=== PATIENT | male | born 1935 | race Hispanic/Latino ===

== ENCOUNTER 2018-09-10 10:00 | Observation (INO) | payer MEDICARE ==
[~2018-09-10] VITALS: Ht 154.4 cm; Wt 98.0 kg
[~2018-09-10 10:00] MED LIST: AMLODIPINE-BEN1 EACH PO; ATORVASTATIN CA10 MG PO; AUGMENTIN XR 11 EACH PO; Aspirin PO; CELEBREX100 MG PO; DETROL LA4 MG PO; FLOMAX0.4 MG PO; GLUCOPHAGE500 MG PO; NORCO 7.5-3251 EACH PO; SERTRALINE HCL50 MG PO; ULTRAM50 MG PO; VESICARE10 MG PO
--- OUTSIDE RECORDS SUMMARY | 2018-09-10 10:03 | XMS REPORT | Summary of Care ---
Author Author [facility] Organization [facility] Address Unknown Phone Unavailable Encounter [place] Paz(WALLY) [id number] Date(s): 10/25/17 - 10/25/17 [facility] [address], [place], [place] [address]- [phone] Discharge Diagnosis: Fall Discharge Diagnosis: Laceration of scalp without foreign body Discharge Diagnosis: Head contusion Discharge Disposition: Home or Self Care Attending Physician: Drew Prescott MD Vital Signs 1 2 3 Most recent to oldest [Reference Range]: 175.26 cm (10/25/17 4:14 PM) Height 147/75 mmHg *HI* (10/25/17 8:30 PM) 160/82 mmHg *HI* (10/25/17 6:51 PM) 157/76 mmHg *HI* (10/25/17 4:14 PM) Blood Pressure [90-140/60-90 mmHg] 16 BRMIN (10/25/17 8:30 PM) 16 BRMIN (10/25/17 6:51 PM) 16 BRMIN (10/25/17 4:14 PM) Respiratory Rate [14-20 BRMIN] 68 bpm (10/25/17 8:30 PM) 66 bpm (10/25/17 6:51 PM) 65 bpm (10/25/17 4:14 PM) Peripheral Pulse Rate [60-100 bpm] 88.636 kg (10/25/17 4:14 PM) Weight 28.86 m2 (10/25/17 4:14 PM) Body Mass Index Problem List No data available for this section Allergies, Adverse Reactions, Alerts Substance Reaction Severity Status sulfa drugs Active Medications Keflex 500 mg oral capsule 500 mg=1 cap, PO, TID, X 10 day, # 30 cap, 0 Refill(s) Start Date: 10/25/17 Stop Date: 11/04/17 Status: Ordered lidocaine 2% 1 inj, Route: SUB-Q, Dosing Weight 88.636, kg, ONCE, STAT, Start date: 10/25/17 18:33:00 [employer], Stop date: 10/25/17 18:33:00 [employer] Start Date: 10/25/17 Stop Date: 10/25/17 Status: Completed Results No data available for this section Immunizations No data available for this section Procedures No data available for this section Social History Social History Type Response Smoking Status Never smoker; Ready to change: No; Concerns about tobacco use in household: No; Exposure to Tobacco Smoke None; Cigarette Smoking Last 365 Days No; Reg Smoking Cessation Counseling No Assessment and Plan No data available for this section
--- OUTSIDE RECORDS SUMMARY | 2018-09-10 10:03 | XMS REPORT ---
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 Allergies, Adverse Reactions, Alerts Allergy Name Allergy Type Status Severity Reaction(s) Onset Date Inactive Date Treating Clinician Comments Sulfa (Sulfonamide Antibiotics) DA Active U 2014-11-21 00:00:00 sulfamethoxazole DA Active U 2014-11-21 00:00:00 trimethoprim DA Active U 2014-11-21 00:00:00 Medications This patient has no known medications.
--- OUTSIDE RECORDS SUMMARY | 2018-09-10 10:03 | XMS REPORT | Summary of Care ---
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9 DegF (12/16/17 11:51 AM) 98.7 DegF (12/16/17 7:25 AM) Temperature Oral [96.4-99.1 DegF] 129/63 mmHg (12/16/17 6:00 PM) 115/70 mmHg (12/16/17 11:51 AM) 130/68 mmHg (12/16/17 7:25 AM) Blood Pressure [90-140/60-90 mmHg] 18 BRMIN (12/16/17 6:00 PM) 18 BRMIN (12/16/17 11:51 AM) 17 BRMIN (12/16/17 7:25 AM) Respiratory Rate [14-20 BRMIN] 98 bpm (1/27/18 6:00 PM) 78 bpm (12/16/17 11:51 AM) 74 bpm (12/16/17 7:25 AM) Peripheral Pulse Rate [60-100 bpm] 94.682 kg (12/14/17 2:22 PM) 96.818 kg (12/14/17 7:17 AM) Weight 32.69 m2 (12/14/17 2:22 PM) 33.43 m2 (12/14/17 7:17 AM) Body Mass Index Problem List No data available for this section Allergies, Adverse Reactions, Alerts Substance Reaction Severity Status sulfa drugs Active Medications acetaminophen 650 mg, Route: PO, Drug form: TAB, Q4H, Dosing Weight 94.682, kg, PRN For Temp > 100.4 F, Start date: 12/15/17 8:01:00 DRUM REEL CUTTER, Duration: 30 day, Stop date: 01/14/18 8:00:00 DRUM REEL CUTTER Start Date: 12/15/17 Stop Date: 12/15/17 Status: Deleted acetaminophen 650 mg, 2 tab, Route: PO, Drug form: TAB, Q4H, Dosing Weight 94.682, kg, PRN For Temp > 100.4 F, Start date: 12/14/17 18:04:00 DRUM REEL CUTTER, Duration: 30 day, Stop date: 01/13/18 18:03:00 DRUM REEL CUTTER Notes: Do not exceed 4 gm/day. (Same as: Tylenol) Start Date: 12/14/17 Stop Date: 12/16/17 Status: Discontinued Al hydroxide/Mg hydroxide/simethicone 200 mg-200 mg-20 mg/5 mL oral suspension 30 mL, Route: PO, Drug Form: SUSP, Dosing Weight 94.682, kg, Q4H, PRN Indigestio n, Start date: 12/15/17 8:01:00 DRUM REEL CUTTER, Duration: 30 day, Stop date: 01/14/18 8:00: 00 DRUM REEL CUTTER Start Date: 12/15/17 Stop Date: 12/15/17 Status: Deleted Al hydroxide/Mg hydroxide/simethicone 200 mg-200 mg-20 mg/5 mL oral suspension 30 mL, Route: PO, Drug Form: SUSP, Dosing Weight 94.682, kg, Q4H, PRN Indigestio n, Start date: 12/14/17 18:04:00 DRUM REEL CUTTER, Duration: 30 day, Stop date: 01/13/18 18:0 3:00 DRUM REEL CUTTER Notes: (aluminum hydroxide-magnesium hyd-simethicone [phone]/5ml 30 ml ud S US) Start Date: 12/14/17 Stop Date: 12/16/17 Status: Discontinued amLODIPine 5 mg, 1 tab, Route: PO, Drug form: TAB, Daily, Start date: 12/15/17 9:00:00 DRUM REEL CUTTER, Duration: 30 day, Stop date: 01/13/18 9:00:00 DRUM REEL CUTTER Notes: (Same as: Hai) Start Date: 12/15/17 Stop Date: 12/16/17 Status: Discontinued amLODIPine 5 mg, 1 tab, Route: PO, Drug form: TAB, Daily, Start date: 12/15/17 10:40:00 DRUM REEL CUTTER , Duration: 30 day, Stop date: 01/14/18 9:00:00 DRUM REEL CUTTER Notes: (Same as: Hai) Start Date: 12/15/17 Stop Date: 12/16/17 Status: Discontinued amLODIPine-benazepril 5 mg-20 mg oral capsule 1 cap, Route: PO, Drug Form: CAP, Dosing Weight 94.682, kg, Daily, Start date: 0 12/16/17 9:00:00 DRUM REEL CUTTER, Duration: 30 day, Stop date: 01/14/18 9:00:00 DRUM REEL CUTTER Start Date: 12/16/17 Stop Date: 12/15/17 Status: Deleted amLODIPine-benazepril 5 mg-20 mg oral capsule 1 cap, PO, Daily, 0 Refill(s) Start Date: 12/14/17 Stop Date: 12/15/17 Status: Discontinued amLODIPine-benazepril 5 mg-20 mg oral capsule 1 cap, Route: PO, Drug Form: CAP, Dosing Weight 94.682, kg, Daily, Start date: 0 12/15/17 9:00:00 DRUM REEL CUTTER, Duration: 30 day, Stop date: 01/13/18 9:00:00 DRUM REEL CUTTER Start Date: 12/15/17 Stop Date: 12/14/17 Status: Deleted amLODIPine-benazepril 5 mg-20 mg oral capsule 1 cap, PO, Daily, # 30 cap, 0 Refill(s) Start Date: 12/15/17 Status: Ordered ANES acetaminophen 1,000 mg, 2 tab, Route: PO, Drug form: TAB, ONCE, Dosing Weight 94.682, kg, PRN Pain Score 1-3, Start date: 12/15/17 11:16:00 DRUM REEL CUTTER Notes: Max acetaminophen 4000 mg/day (4 gm/day). (Same as: Tylenol Extra Streng th) Start Date: 12/15/17 Stop Date: 12/16/17 Status: Discontinued ANES albuterol 0.083% inhalation solution 2.49 mg, 3 mL, Route: NEB, Drug form: SOLN, Q20Min, Dosing Weight 94.682, kg, VT N Wheezing, Priority: STAT, Start date: 12/15/17 11:16:00 DRUM REEL CUTTER, Duration: 30 day, Stop date: 01/14/18 11:15:00 DRUM REEL CUTTER Notes: SEE RT DOCUMENTATION (Same as: Proventil) Start Date: 12/15/17 Stop Date: 12/16/17 Status: Discontinued ANES flumazenil 0.2 mg, 2 mL, Route: IVP, Drug form: INJ, PRN, Dosing Weight 94.682, kg, PRN Mik zodiazepine Reversal, Initial dose, Start date: 12/15/17 11:16:00 DRUM REEL CUTTER, Duration: 30 day, Stop date: 01/14/18 11:15:00 DRUM REEL CUTTER Notes: (Same as: Romazicon) Start Date: 12/15/17 Stop Date: 12/16/17 Status: Discontinued ANES hydrALAZINE 10 mg, 0.5 mL, Route: IVP, Drug form: INJ, Q20Min, Dosing Weight 94.682, kg, PRN Elevated BP, Start date: 12/15/17 11:16:00 DRUM REEL CUTTER, Duration: 2 doses or times, Stop date: Limited # of times Notes: (Same as: Apresoline)Push over 5 minutes Start Date: 12/15/17 Stop Date: 12/16/17 Status: Discontinued ANES HYDROmorphone 0.5 mg, 0.5 mL, Route: IVP, Drug form: INJ, Q5Min, Dosing Weight 94.682, kg, PRN Pain Score 7-10, Start date: 12/15/17 11:16:00 DRUM REEL CUTTER, Duration: 4 doses or times, Stop date: Limited # of times Notes: Same as: Dilaudid Start Date: 12/15/17 Stop Date: 12/16/17 Status: Discontinued ANES labetalol 10 mg, 2 mL, Route: IVP, Drug form: INJ, Q5Min, Dosing Weight 94.682, kg, PRN El evated BP, Start date: 12/15/17 11:16:00 DRUM REEL CUTTER, Duration: 5 doses or times, Stop d ate: Limited # of times Notes: (Same as: Normodyne, Trandate)Push over 2 minutes Give bolus over 2-3 mi nutes. Start Date: 12/15/17 Stop Date: 12/16/17 Status: Discontinued ANES meperidine 12.5 mg, 0.5 mL, Route: IVP, Drug form: INJ, Q30Min, Dosing Weight 94.682, kg, P RN Other -See Comment, For shivering, Start date: 12/15/17 11:16:00 DRUM REEL CUTTER, Duratio n: 2 doses or times, Stop date: Limited # of times Notes: (Same as: Demerol) "Use Precaution in Elderly, Seizure disorders, and Re nal impairment" Start Date: 12/15/17 Stop Date: 12/16/17 Status: Discontinued ANES morphine Sulfate 4 mg, 1 mL, Route: IVP, Drug form: SOLN, Q5Min, Dosing Weight 94.682, kg, PRN Pa in Score 7-10, Start date: 12/15/17 11:16:00 DRUM REEL CUTTER, Duration: 3 doses or times, St op date: Limited # of times Notes: (Same as:MORPhine Sulfate) Start Date: 12/15/17 Stop Date: 12/16/17 Status: Discontinued ANES morphine Sulfate 2 mg, 0.5 mL, Route: IVP, Drug form: SOLN, Q5Min, Dosing Weight 94.682, kg, PRN Pain Score 4-6, Start date: 12/15/17 11:16:00 DRUM REEL CUTTER, Duration: 5 doses or times, S top date: Limited # of times Notes: (Same as:MORPhine Sulfate) Start Date: 12/15/17 Stop Date: 12/16/17 Status: Discontinued ANES naloxone 0.4 mg, 1 mL, Route: IVP, Drug form: INJ, Q2MIN, Dosing Weight 94.682, kg, PRN N arcotic Reversal, Start date: 12/15/17 11:16:00 DRUM REEL CUTTER, Duration: 8 doses or times, Stop date: Limited # of times Notes: Same as Narcan Start Date: 12/15/17 Stop Date: 12/16/17 Status: Discontinued ANES ondansetron 4 mg, 2 mL, Route: IVP, Drug form: INJ, ONCE, Dosing Weight 94.682, kg, PRN Naus ea & Vomiting, Start date: 12/15/17 11:16:00 DRUM REEL CUTTER Notes: (Same as: Maite) MEDICATION WASTE Product Size: 4 mgProduct Was ron: ___ mg Start Date: 12/15/17 Stop Date: 12/16/17 Status: Discontinued atorvastatin 10 mg, 1 tab, Route: PO, Drug form: TAB, Bedtime, Dosing Weight 94.682, kg, Star t date: 12/15/17 21:00:00 DRUM REEL CUTTER, Duration: 30 day, Stop date: 01/13/18 21:00:00 CS T Notes: (Same As: Lipitor) Start Date: 12/15/17 Stop Date: 12/16/17 Status: Discontinued atorvastatin 10 mg oral tablet 10 mg=1 tab, PO, Bedtime, # 30 tab, 0 Refill(s) Start Date: 12/15/17 Status: Ordered azithromycin 500 mg, Route: IVPB, ONCE, Dosing Weight 96.818, kg, Priority: STAT, Start date: 12/14/17 12:09:00 DRUM REEL CUTTER, Stop date: 12/14/17 12:09:00 DRUM REEL CUTTER, ABX Indication: Pneumo bonny Start Date: 12/14/17 Stop Date: 12/14/17 Status: Completed bisacodyl 10 mg, Route: VT, Drug form: SUPP, Daily, Dosing Weight 94.682, kg, PRN Constipa tion, Start date: 12/15/17 8:01:00 DRUM REEL CUTTER, Duration: 30 day, Stop date: 01/14/18 8: 00:00 DRUM REEL CUTTER Start Date: 12/15/17 Stop Date: 12/15/17 Status: Deleted bisacodyl 10 mg, 1 supp, Route: VT, Drug form: SUPP, Daily, Dosing Weight 94.682, kg, PRN Constipation, Start date: 12/14/17 18:04:00 DRUM REEL CUTTER, Duration: 30 day, Stop date: 18:03:00 DRUM REEL CUTTER Notes: (Same As: Dulcolax, Bisco-Lax) Start Date: 12/14/17 Stop Date: 12/16/17 Status: Discontinued CeleBREX 200 mg, 2 cap, Route: PO, Drug form: CAP, Daily, Dosing Weight 94.682, kg, Start date: 12/16/17 9:00:00 DRUM REEL CUTTER, Duration: 30 day, Stop date: 01/14/18 9:00:00 DRUM REEL CUTTER Notes: NSAID. Please check indication. Not for seizure. (Same As: CeleBREX) Start Date: 12/16/17 Stop Date: 12/16/17 Status: Discontinued CeleBREX 200 mg oral capsule 200 mg=1 cap, PO, Daily, # 30 cap, 0 Refill(s) Start Date: 12/15/17 Status: Ordered cloNIDine 0.1 mg oral tablet 0.1 mg, 1 tab, Route: PO, Drug form: TAB, TID, Dosing Weight 94.682, kg, PRN Orquidea vated BP, Start date: 12/15/17 8:01:00 DRUM REEL CUTTER, Duration: 30 day, Stop date: 8 8:00:00 DRUM REEL CUTTER Notes: (Same As: Catapres) Start Date: 12/15/17 Stop Date: 12/16/17 Status: Discontinued codeine-guaiFENesin 10 mg-100 mg/5 mL oral syrup 10 mL, Route: PO, Drug Form: LIQ, Dosing Weight 94.682, kg, Q4H, PRN Cough, Star t date: 12/15/17 8:01:00 DRUM REEL CUTTER, Duration: 30 day, Stop date: 01/14/18 8:00:00 DRUM REEL CUTTER Start Date: 12/15/17 Stop Date: 12/15/17 Status: Deleted codeine-guaiFENesin 10 mg-100 mg/5 mL oral syrup 10 mL, Route: PO, Drug Form: LIQ, Dosing Weight 94.682, kg, Q4H, PRN Cough, Star t date: 12/14/17 18:04:00 DRUM REEL CUTTER, Duration: 30 day, Stop date: 01/13/18 18:03:00 CS T Notes: (Same As: Robitussin AC) Start Date: 12/14/17 Stop Date: 12/16/17 Status: Discontinued dextromethorphan-guaiFENesin 10 mg-100 mg/5 mL oral liquid 10 mL, Route: PO, Drug Form: LIQ, Dosing Weight 94.682, kg, Q4H, PRN Cough, Star t date: 12/15/17 8:01:00 DRUM REEL CUTTER, Duration: 30 day, Stop date: 01/14/18 8:00:00 DRUM REEL CUTTER Start Date: 12/15/17 Stop Date: 12/15/17 Status: Deleted dextromethorphan-guaiFENesin 10 mg-100 mg/5 mL oral liquid 10 mL, Route: PO, Drug Form: LIQ, Dosing Weight 94.682, kg, Q4H, PRN Cough, Star t date: 12/14/17 18:04:00 DRUM REEL CUTTER, Duration: 30 day, Stop date: 01/13/18 18:03:00 CS T Notes: (dextromethorphan-guaifenesin 10-100/5 ml LIQ) (Same as: Robitussin-DM) Start Date: 12/14/17 Stop Date: 12/16/17 Status: Discontinued Dextrose 50% Syringe 25 gm, 50 mL, Route: IVP, Drug Form: INJ, Dosing Weight 94.682, kg, PRN, PRN Blo od Glucose Results, Start date: 12/14/17 18:03:00 DRUM REEL CUTTER, Duration: 30 day, Stop da te: 01/13/18 18:02:00 DRUM REEL CUTTER Start Date: 12/14/17 Stop Date: 12/16/17 Status: Discontinued Dextrose 50% Syringe 12.5 gm, 25 mL, Route: IVP, Drug Form: INJ, Dosing Weight 94.682, kg, PRN, PRN B lood Glucose Results, Start date: 12/14/17 18:03:00 DRUM REEL CUTTER, Duration: 30 day, Stop date: 01/13/18 18:02:00 DRUM REEL CUTTER Start Date: 12/14/17 Stop Date: 12/16/17 Status: Discontinued diphenhydrAMINE 25 mg, Route: PO, Drug form: TAB, Q6H, Dosing Weight 94.682, kg, PRN Itching, St art date: 12/15/17 8:01:00 DRUM REEL CUTTER, Duration: 30 day, Stop date: 01/14/18 8:00:00 CS T Start Date: 12/15/17 Stop Date: 12/15/17 Status: Deleted diphenhydrAMINE 25 mg, 1 tab, Route: PO, Drug form: TAB, Q6H, Dosing Weight 94.682, kg, PRN Itch ing, Start date: 12/14/17 18:04:00 DRUM REEL CUTTER, Stop date: 01/13/18 18:03:00 DRUM REEL CUTTER Start Date: 12/14/17 Stop Date: 12/16/17 Status: Discontinued Ditropan 5 mg, 1 tab, Route: PO, Drug form: TAB, BID, Start date: 12/15/17 10:48:00 DRUM REEL CUTTER, Duration: 30 day, Stop date: 01/14/18 9:00:00 DRUM REEL CUTTER Notes: Same as: Ditropan) Start Date: 12/15/17 Stop Date: 12/16/17 Status: Discontinued Dulcolax Laxative 10 mg, 2 tab, Route: PO, Drug form: ECTAB, BID, Dosing Weight 94.682, kg, PRN Co nstipation, Start date: 12/15/17 8:01:00 DRUM REEL CUTTER, Duration: 30 day, Stop date: 01/14 8:00:00 DRUM REEL CUTTER Notes: (Same As: Dulcolax, Correctol) (Do Not Crush) "Do Not Crush" Start Date: 12/15/17 Stop Date: 12/16/17 Status: Discontinued DuoNeb inhalation solution 3 ml, Route: NEB, Drug Form: SOLN, Dosing Weight 94.682, kg, RQ6H, Start date: 0 12/15/17 14:00:00 DRUM REEL CUTTER, Duration: 30 day, Stop date: 01/14/18 8:00:00 DRUM REEL CUTTER Notes: (Same as: Duoneb) Start Date: 12/15/17 Stop Date: 12/16/17 Status: Discontinued ePHEDrine (ANES) Route: IV, Drug form: INJ, ONCE, Stop date: 12/15/17 13:48:00 DRUM REEL CUTTER Start Date: 12/15/17 Stop Date: 12/15/17 Status: Completed fentaNYL (ANES) Route: IV, Drug form: INJ, ONCE, Stop date: 12/15/17 13:53:00 DRUM REEL CUTTER Start Date: 12/15/17 Stop Date: 12/15/17 Status: Completed Flomax 0.4 mg, 1 cap, Route: PO, Drug form: CAP, Daily, Dosing Weight 94.682, kg, Start date: 12/15/17 9:00:00 DRUM REEL CUTTER, Duration: 30 day, Stop date: 01/13/18 9:00:00 DRUM REEL CUTTER Notes: (Same As: Flomax) "Do Not Crush" Start Date: 12/15/17 Stop Date: 12/16/17 Status: Discontinued Flomax 0.4 mg oral capsule 0.4 mg=1 cap, PO, Daily, 0 Refill(s) Start Date: 12/14/17 Status: Ordered glucagon 1 mg, Route: IM, Drug form: PDR/INJ, PRN, Dosing Weight 94.682, kg, PRN Blood Gl ucose Results, Start date: 12/14/17 18:03:00 DRUM REEL CUTTER, Duration: 30 day, Stop date: 0 01/13/18 18:02:00 DRUM REEL CUTTER Start Date: 12/14/17 Stop Date: 12/16/17 Status: Discontinued glycopyrrolate (ANES) Route: IV, Drug form: INJ, ONCE, Stop date: 12/15/17 14:06:00 DRUM REEL CUTTER Start Date: 12/15/17 Stop Date: 12/15/17 Status: Completed hydrALAZINE 10 mg, 0.5 mL, Route: IVP, Drug form: INJ, Q4H, Dosing Weight 94.682, kg, PRN El evated BP, Start date: 12/15/17 8:01:00 DRUM REEL CUTTER, Duration: 30 day, Stop date: 8:00:00 DRUM REEL CUTTER Notes: (Same as: Apresoline)Push over 5 minutes Start Date: 12/15/17 Stop Date: 12/16/17 Status: Discontinued insulin lispro 1 unit, 0.01 mL, Route: SUB-Q, Drug form: SOLN, TID-Before Meals, Dosing Weight 94.682, kg, PRN Blood Glucose Results, Start date: 12/14/17 18:03:00 DRUM REEL CUTTER, Durati on: 30 day, Stop date: 01/13/18 18:02:00 DRUM REEL CUTTER Notes: (Same as: Humalog ) Roll in palms of hands gently; Do not shake `vigorou sly. "Single Patient Use Only " WASTE: F/P - Black; E - [employer] [address] able for 28 days at room temperature.Expires in days from Da te Start Date: 12/14/17 Stop Date: 12/16/17 Status: Discontinued insulin lispro 3 unit, 0.03 mL, Route: SUB-Q, Drug form: SOLN, TID-Before Meals, Dosing Weight 94.682, kg, PRN Blood Glucose Results, Start date: 12/14/17 18:03:00 DRUM REEL CUTTER, Durati on: 30 day, Stop date: 01/13/18 18:02:00 DRUM REEL CUTTER Notes: (Same as: Humalog ) Roll in palms of hands gently; Do not shake `vigorou sly. "Single Patient Use Only " WASTE: F/P - Black; E - [employer] [facility] [address] able for 28 days at room temperature.Expires in days from Da te Start Date: 12/14/17 Stop Date: 12/16/17 Status: Discontinued insulin lispro 2 unit, 0.02 mL, Route: SUB-Q, Drug form: SOLN, TID-Before Meals, Dosing Weight 94.682, kg, PRN Blood Glucose Results, Start date: 12/14/17 18:03:00 DRUM REEL CUTTER, Durati on: 30 day, Stop date: 01/13/18 18:02:00 DRUM REEL CUTTER Notes: (Same as: Humalog ) Roll in palms of hands gently; Do not shake `vigorou sly. "Single Patient Use Only " WASTE: F/P - Black; E - [employer] [address] able for 28 days at room temperature.Expires in days from Da te Start Date: 12/14/17 Stop Date: 12/16/17 Status: Discontinued insulin lispro 5 unit, 0.05 mL, Route: SUB-Q, Drug form: SOLN, TID-Before Meals, Dosing Weight 94.682, kg, PRN Blood Glucose Results, Start date: 12/14/17 18:03:00 DRUM REEL CUTTER, Durati on: 30 day, Stop date: 01/13/18 18:02:00 DRUM REEL CUTTER Notes: (Same as: Humalog ) Roll in palms of hands gently; Do not shake `vigorou sly. "Single Patient Use Only " WASTE: F/P - Black; E - [employer] [facility] [address] able for 28 days at room temperature.Expires in days from Da te Start Date: 12/14/17 Stop Date: 12/16/17 Status: Discontinued insulin lispro 4 unit, 0.04 mL, Route: SUB-Q, Drug form: SOLN, TID-Before Meals, Dosing Weight 94.682, kg, PRN Blood Glucose Results, Start date: 12/14/17 18:03:00 DRUM REEL CUTTER, Durati on: 30 day, Stop date: 01/13/18 18:02:00 DRUM REEL CUTTER Notes: (Same as: Humalog ) Roll in palms of hands gently; Do not shake `vigorou sly. "Single Patient Use Only " WASTE: F/P - Black; E - [employer] [address] able for 28 days at room temperature.Expires in days from Da te Start Date: 12/14/17 Stop Date: 12/16/17 Status: Discontinued Keflex 500 mg oral capsule 500 mg=1 cap, PO, TID, X 10 day, # 30 cap, 0 Refill(s) Start Date: 12/16/17 Stop Date: 12/26/17 Status: Completed Lactated Ringers Injection IV (ANES) 1000 mL Route: IV, Total Volume: 1,000, Start date: 12/15/17 12:42:00 DRUM REEL CUTTER, Stop date: 13:42:00 DRUM REEL CUTTER Start Date: 12/15/17 Stop Date: 12/15/17 Status: Completed Lactated Ringers IV 1,000 mL 1,000 mL, Rate: 40 ml/hr, Infuse over: 25 hr, Route: IV, Dosing Weight 94.682 kg , Total Volume: 1,000, Start date: 12/15/17 11:23:00 DRUM REEL CUTTER, Duration: 30 day, Stop date: 01/14/18 11:22:00 DRUM REEL CUTTER, 2.14, m2 Start Date: 12/15/17 Stop Date: 12/16/17 Status: Discontinued lidocaine (ANES) Route: IV, Drug form: INJ, ONCE, Stop date: 12/15/17 13:53:00 DRUM REEL CUTTER Start Date: 12/15/17 Stop Date: 12/15/17 Status: Completed Lipitor PO, Daily, 0 Refill(s) Start Date: 12/14/17 Stop Date: 12/15/17 Status: Deleted lisinopril 20 mg, 1 tab, Route: PO, Drug form: TAB, Daily, Start date: 12/15/17 10:42:00 CS T, Duration: 30 day, Stop date: 01/14/18 9:00:00 DRUM REEL CUTTER Notes: (Same as: Prinivil, Zestril) Start Date: 12/15/17 Stop Date: 12/16/17 Status: Discontinued lisinopril 20 mg, 1 tab, Route: PO, Drug form: TAB, Daily, Start date: 12/15/17 9:00:00 DRUM REEL CUTTER , Duration: 30 day, Stop date: 01/13/18 9:00:00 DRUM REEL CUTTER Notes: (Same as: Prinivil, Zestril) Start Date: 12/15/17 Stop Date: 12/16/17 Status: Discontinued magnesium citrate 1.745 g/30 mL oral liquid 150 ml, Route: PO, Drug Form: LIQ, Dosing Weight 94.682, kg, ONCE, PRN Constipat ion, Start date: 12/15/17 8:01:00 DRUM REEL CUTTER Notes: (Same as: Citrate of Magnesia)Concentration: 1.745 gm / 30 mL Start Date: 12/15/17 Stop Date: 12/16/17 Status: Discontinued metFORMIN 500 mg, PO, BID, 0 Refill(s) Start Date: 12/14/17 Status: Ordered Milk of Magnesia 30 mL, Route: PO, Drug Form: SUSP, Dosing Weight 94.682, kg, Q3H, PRN Constipati on, Start date: 12/15/17 8:01:00 DRUM REEL CUTTER, Duration: 2 doses or times, Stop date: Fisher opaled # of times Start Date: 12/15/17 Stop Date: 12/15/17 Status: Deleted Milk of Magnesia 30 mL, Route: PO, Drug Form: SUSP, Dosing Weight 94.682, kg, Q3H, PRN Constipati on, Start date: 12/14/17 18:04:00 DRUM REEL CUTTER, Duration: 2 doses or times, Stop date: Janneth dougherty # of times Notes: (Same as: Milk of Magnesia, MOM) Start Date: 12/14/17 Stop Date: 12/16/17 Status: Discontinued morphine Sulfate 4 mg, 1 mL, Route: IVP, Drug form: SOLN, Q4H, Dosing Weight 94.682, kg, PRN Pain Score 7-10, Start date: 12/14/17 16:54:00 DRUM REEL CUTTER, Duration: 30 day, Stop date: 16:53:00 DRUM REEL CUTTER Notes: (Same as:MORPhine Sulfate) Start Date: 12/14/17 Stop Date: 12/16/17 Status: Discontinued morphine Sulfate 4 mg, Route: IVP, Drug form: INJ, ONCE, Dosing Weight 96.818, kg, Priority: STAT , Start date: 12/14/17 10:14:00 DRUM REEL CUTTER, Stop date: 12/14/17 10:14:00 DRUM REEL CUTTER Start Date: 12/14/17 Stop Date: 12/14/17 Status: Completed morphine Sulfate 2 mg, Route: IVP, Drug form: INJ, ONCE, Dosing Weight 96.818, kg, Priority: STAT , Start date: 12/14/17 7:25:00 DRUM REEL CUTTER, Stop date: 12/14/17 7:25:00 DRUM REEL CUTTER Start Date: 12/14/17 Stop Date: 12/14/17 Status: Completed neostigmine (ANES) Route: IV, Drug form: INJ, ONCE, Stop date: 12/15/17 14:06:00 DRUM REEL CUTTER Start Date: 12/15/17 Stop Date: 12/15/17 Status: Completed Alda 5/325 oral tablet 1 tab, Route: PO, Drug Form: TAB, Dosing Weight 94.682, kg, Q4H, PRN Pain Score 4-6, Start date: 12/15/17 8:01:00 DRUM REEL CUTTER, Duration: 30 day, Stop date: 01/14/18 8:0 0:00 DRUM REEL CUTTER Start Date: 12/15/17 Stop Date: 12/15/17 Status: Deleted Alda 5/325 oral tablet 1 tab, Route: PO, Drug Form: TAB, Dosing Weight 94.682, kg, Q4H, PRN Pain Score 1-3, Start date: 12/14/17 16:54:00 DRUM REEL CUTTER, Stop date: 12/16/17 8:59:00 DRUM REEL CUTTER Notes: (Same as: Alda 325/5) Do not exceed 4gm/day of acetaminophen. Start Date: 12/14/17 Stop Date: 12/16/17 Status: Completed normal saline 0.9% IV 1000 mL 1,000 mL, Rate: 100 ml/hr, Infuse over: 10 hr, Route: IV, Dosing Weight 96.818 k g, Total Volume: 1,000, Priority: STAT, Start date: 12/14/17 10:13:00 DRUM REEL CUTTER, Durat ion: 1 doses or times, Stop date: 12/14/17 20:12:00 DRUM REEL CUTTER, 2.16, m2 Start Date: 12/14/17 Stop Date: 12/14/17 Status: Completed NS (Bolus) IV 1,000 mL, 1,000 ml/hr, Infuse Over: 1 hr, Route: IV, ONCE, Priority: STAT, Dosin g Weight 96.818 kg, Start date: 12/14/17 7:25:00 DRUM REEL [employer], Stop date: 12/14/17 7:25:0 0 [employer] Start Date: 12/14/17 Stop Date: 12/14/17 Status: Completed ondansetron 4 mg, Route: IVP, Drug form: INJ, Q8H, Dosing Weight 94.682, kg, PRN Nausea & Vomiting, Start date: 12/15/17 8:01:00 [employer], Duration: 30 day, Stop date: 8:00:00 [employer] Start Date: 12/15/17 Stop Date: 12/15/17 Status: Deleted ondansetron 4 mg, 2 mL, Route: IVP, Drug form: INJ, Q8H, Dosing Weight 94.682, kg, PRN Nause a & Vomiting, Start date: 12/14/17 18:04:00 [employer], Duration: 30 day, Stop date: 01/13/18 18:03:00 [employer] Notes: (Same as: Zofran) MEDICATION WASTE Product Size: 4 mgProduct Was ron: ___ mg Start Date: 12/14/17 Stop Date: 12/16/17 Status: Discontinued ondansetron 4 mg, Route: IVP, Drug form: INJ, ONCE, Dosing Weight 96.818, kg, Priority: STAT , Start date: 12/14/17 7:25:00 [employer], Stop date: 12/14/17 7:25:00 [employer] Start Date: 12/14/17 Stop Date: 12/14/17 Status: Completed ondansetron (ANES) Route: IV, Drug form: INJ, ONCE, Stop date: 12/15/17 14:06:00 [employer] Start Date: 12/15/17 Stop Date: 12/15/17 Status: Completed phenylephrine (ANES) Route: IV, Drug form: INJ, ONCE, Stop date: 12/15/17 13:48:00 [employer] Start Date: 12/15/17 Stop Date: 12/15/17 Status: Completed propofol (ANES) Route: IV, Drug form: INJ, ONCE, Stop date: 12/15/17 13:53:00 [employer] Start Date: 12/15/17 Stop Date: 12/15/17 Status: Completed Rocephin 1 gm, Route: IVPB, Drug form: PDR/INJ, ONCE, Dosing Weight 96.818, kg, Priority: STAT, Start date: 12/14/17 9:40:00 [employer], Stop date: 12/14/17 9:40:00 [employer], ABX In dication: Urinary Tract Infection Start Date: 12/14/17 Stop Date: 12/14/17 Status: Completed Rocephin + sterile water 10 mL 1 gm, Route: IVP, [id number], Dosing Weight 94.682, kg, Start date: 12/14/17 17:00: 00 [employer], Duration: 10 day, Stop date: 12/24/17 10:00:00 [employer], ABX Indication: Kimberley caryn Tract Infection Notes: (Same As: Rocephin).Use with 100 mL NS and infuse over 30 min MEDICA TION WASTE Product Size: 1000 mgProduct Wasted: ___ mg Start Date: 12/14/17 Stop Date: 12/16/17 Status: Discontinued rocuronium (ANES) Route: IV, Drug form: INJ, ONCE, Stop date: 12/15/17 13:53:00 [employer]UM RE[employer] CUTTER Start Date: 12/15/17 Stop Date: 12/15/17 Status: Completed sertraline PO, Daily, 0 Refill(s) Start Date: 12/14/17 Stop Date: 12/15/17 Status: Deleted sertraline 50 mg, 1 tab, Route: PO, Drug form: TAB, Daily, Dosing Weight 94.682, kg, Start date: 12/15/17 10:46:00 DRUM REEL CUTTER, Duration: 30 day, Stop date: 01/14/18 9:00:00 DRUM RE[employer] CUTTER Notes: (Same as: Zoloft) Start Date: 12/15/17 Stop Date: 12/16/17 Status: Discontinued sertraline 50 mg oral tablet 50 mg=1 tab, PO, Daily, # 30 tab, 0 Refill(s) Start Date: 12/15/17 Status: Ordered simethicone 80 mg, Route: PO, Drug form: CHEWTAB, Q6H, Dosing Weight 94.682, kg, PRN Gas, St art date: 12/15/17 8:01:00 DRUM REEL CUTTER, Duration: 2 doses or times, Stop date: Limited # of times Start Date: 12/15/17 Stop Date: 12/15/17 Status: Deleted simethicone 80 mg, 1 tab, Route: PO, Drug form: CHEWTAB, Q6H, Dosing Weight 94.682, kg, PRN Gas, Start date: 12/14/17 18:04:00 DRUM REEL CUTTER, Duration: 2 doses or times, Stop date: L imited # of times Notes: (Same as: Mylicon) Start Date: 12/14/17 Stop Date: 12/16/17 Status: Discontinued succinylcholine (ANES) Route: IV, Drug form: INJ, ONCE, Stop date: 12/15/17 13:53:00 DRUM RE[employer] CUTTER Start Date: 12/15/17 Stop Date: 12/15/17 Status: Completed Tessalon Perles 100 mg, Route: PO, Drug form: CAP, Q8H, Dosing Weight 94.682, kg, PRN Cough, Sta rt date: 12/15/17 8:01:00 DRUM REEL CUTTER, Duration: 30 day, Stop date: 01/14/18 8:00:00 DRUM RE[employer] C[employer]TER Start Date: 12/15/17 Stop Date: 12/15/17 Status: Deleted Tessalon Perles 100 mg, 1 cap, Route: PO, Drug form: CAP, Q8H, Dosing Weight 94.682, kg, PRN Cou gh, Start date: 12/14/17 18:04:00 DRUM REEL CUTTER, Duration: 30 day, Stop date: 01/13/18 18: 03:00 DRUM REEL CUTTER Notes: (Same As: Tessalon Perles)"Do Not Crush" Start Date: 12/14/17 Stop Date: 12/16/17 Status: Discontinued tolterodine 2 mg, Route: PO, Drug form: TAB, BID, Dosing Weight 94.682, kg, Start date: 11/21 05/07 17:00:00 DRUM REEL CUTTER, Duration: 30 day, Stop date: 01/14/18 9:00:00 DRUM REEL C[employer]TER Start Date: 12/15/17 Stop Date: 12/15/17 Status: Deleted tolterodine PO, Daily, 0 Refill(s) Start Date: 12/14/17 Stop Date: 12/15/17 Status: Deleted tolterodine 2 mg oral tablet 2 mg=1 tab, PO, BID, # 180 tab, 0 Refill(s) Start Date: 12/15/17 Status: Ordered tramadol 50 mg oral tablet 50 mg, 1 tab, Route: PO, Drug form: TAB, Q6H, Dosing Weight 94.682, kg, PRN Pain Score 1-3, Start date: 12/16/17 8:39:00 DRUM RE[employer] CUTTER, Duration: 30 day, Stop date: 01/15 8:38:00 DRUM REEL CUTTER Notes: Not to exceed 400mg/day. (Same As: Ultram) Start Date: 12/16/17 Stop Date: 12/16/17 Status: Discontinued tramadol 50 mg oral tablet 50 mg=1 tab, PO, Q4H, PRN Pain, X 10 day, # 24 tab, 0 Refill(s) Start Date: 12/16/17 Stop Date: 12/26/17 Status: Completed VESIcare 10 mg, Route: PO, Drug form: TAB, Daily, Dosing Weight 94.682, kg, Start date: 0 12/15/17 9:00:00 DRUM REEL CUTTER, Duration: 30 day, Stop date: 01/13/18 9:00:00 DRUM REEL CUTTER Start Date: 12/15/17 Stop Date: 12/14/17 Status: Canceled VESIcare 10 mg oral tablet 10 mg=1 tab, PO, Daily, 0 Refill(s) Start Date: 12/14/17 Status: Ordered Results ELECTROLYTES Most recent to 11 21 oldest [Reference Range]: Sodium Lvl [135-145 142 mEq/L 141 mEq/L mEq/L] (12/15/17 3:38 AM) (12/14/17 7:37 AM) Potassium Lvl 3.7 mEq/L 3.6 mEq/L [3.5-5.1 mEq/L] (12/15/17 3:38 AM) (12/14/17 7:37 AM) Chloride Lvl [95-109 106 mEq/L 105 mEq/L mEq/L] (12/15/17 3:38 AM) (12/14/17 7:37 AM) CO2 [24-32 mEq/L] 27 mEq/L 28 mEq/L (12/15/17 3:38 AM) (12/14/17 7:37 AM) AGAP [10.0-20.0 12.7 mEq/L 11.6 mEq/L mEq/L] (12/15/17 3:38 AM) (12/14/17 7:37 AM) CHEM PANEL Most recent to 11 21 oldest [Reference Range]: Creatinine Lvl 0.79 mg/dL 0.86 mg/dL [0.50-1.40 mg/dL] (12/15/17 3:38 AM) (12/14/17 7:37 AM) eGFR 84 mL/min/1.73m2 1 81 mL/min/1.73m2 2 *NA* *NA* (12/15/17 3:38 AM) (12/14/17 7:37 AM) BUN [7-22 mg/dL] 12 mg/dL 18 mg/dL (12/15/17 3:38 AM) (12/14/17 7:37 AM) B/C Ratio [6-25] 21 (12/14/17 7:37 AM) Glucose Lvl [70-99 111 mg/dL 132 mg/dL mg/dL] *HI* *HI* (12/15/17 3:38 AM) (12/14/17 7:37 AM) Total Protein 8.1 g/dL [6.4-8.4 g/dL] (12/14/17 7:37 AM) Albumin Lvl [3.5-5.0 3.6 g/dL g/dL] (12/14/17 7:37 AM) Globulin [2.7-4.2 4.5 g/dL g/dL] *HI* (12/14/17 7:37 AM) A/G Ratio [0.7-1.6] 0.8 (12/14/17 7:37 AM) Calcium Lvl 8.9 mg/dL 8.9 mg/dL [8.5-10.5 mg/dL] (12/15/17 3:38 AM) (12/14/17 7:37 AM) ALT [0-65 unit/L] 19 unit/L (12/14/17 7:37 AM) AST [0-37 unit/L] 18 unit/L (12/14/17 7:37 AM) Alk Phos [39-136 109 unit/L unit/L] (12/14/17 7:37 AM) Bili Total [0.2-1.3 0.8 mg/dL mg/dL] (12/14/17 7:37 AM) Lipase Lvl [73-393 61 unit/L unit/L] *LOW* (12/14/17 7:37 AM) Lactic Acid Lvl 1.0 mMol/L [0.5-2.2 mMol/L] (12/14/17 7:37 AM) 1Result Comment: The eGFR is calculated using the CKD-EPI formula. In most young, healthy individuals the eGFR will be >90 mL/min/1.73m2. The eGFR declines with age. An eGFR of 60-89 may be normal in some populations, particularly the elderly, for whom the CKD-EPI formula has not been extensively validated. Use of the eGFR is not recommended in the following populations: Individuals with unstable creatinine concentrations, including patients and those with serious co-morbid conditions. Patients with extremes in muscle mass or diet. The data above are obtained from the National Kidney Disease Education Program ( NKDEP) which additionally recommends that when the eGFR is used in patients with extremes of body mass index for purposes of drug dosing, the eGFR should be mul tiplied by the estimated BMI. 2Result Comment: The eGFR is calculated using the CKD-EPI formula. In most young, healthy individuals the eGFR will be >90 mL/min/1.73m2. The eGFR declines with age. An eGFR of 60-89 may be normal in some populations, particularly the elderly, for whom the CKD-EPI formula has not been extensively validated. Use of the eGFR is not recommended in the following populations: Individuals with unstable creatinine concentrations, including patients and those with serious co-morbid conditions. Patients with extremes in muscle mass or diet. The data above are obtained from the National Kidney Disease Education Program ( NKDEP) which additionally recommends that when the eGFR is used in patients with extremes of body mass index for purposes of drug dosing, the eGFR should be mul tiplied by the estimated BMI. URINE AND STOOL Most recent to 1 2 oldest [Reference Range]: UA Turbidity [Clear] Cloudy Cloudy *ABN* *ABN* (12/14/17 1:50 PM) (12/14/17 7:37 AM) UA Color [Yellow] Red Yellow *ABN* *NA* (12/14/17 1:50 PM) (12/14/17 7:37 AM) UA pH [5.0-8.0] 6.5 7.5 (12/14/17 1:50 PM) (12/14/17 7:37 AM) UA Spec Grav 1.010 1.015 [<=1.030] (12/14/17 1:50 PM) (12/14/17 7:37 AM) UA Glucose Negative Negative [Negative] (12/14/17 1:50 PM) (12/14/17 7:37 AM) UA Blood [Negative] Large Small *ABN* *ABN* (12/14/17 1:50 PM) (12/14/17 7:37 AM) UA Ketones Negative Negative [Negative] *NA* *NA* (12/14/17 1:50 PM) (12/14/17 7:37 AM) UA Protein [Negative 100 mg/dL mg/dL] *ABN* (12/14/17 1:50 PM) UA Protein Negative [Negative] (12/14/17 7:37 AM) UA Urobilinogen 0.2 EU/dL 0.2 EU/dL [0.1-1.0 EU/dL] (12/14/17 1:50 PM) (12/14/17 7:37 AM) UA Bili [Negative] Negative Negative *NA* *NA* (12/14/17 1:50 PM) (12/14/17 7:37 AM) UA Leuk Est Moderate Large [Negative] *ABN* *ABN* (12/14/17 1:50 PM) (12/14/17 7:37 AM) UA Nitrite Negative Negative [Negative] (12/14/17 1:50 PM) (12/14/17 7:37 AM) UA WBC [0-5 /HPF] >100 /HPF *ABN* (12/14/17 1:50 PM) UA WBC [None Seen] Packed *ABN* (12/14/17 7:37 AM) UA RBC [0-2 /HPF] >100 /HPF 0-2 /HPF *ABN* (12/14/17 7:37 AM) (12/14/17 1:50 PM) UA Bacteria [None Few /HPF Few /HPF Seen /HPF] (12/14/17 1:50 PM) (12/14/17 7:37 AM) UA Sq Epi [Few /LPF] Occasional /LPF Rare /LPF (12/14/17 1:50 PM) (12/14/17 7:37 AM) UA Mucus [None Seen Few /LPF /LPF] (12/14/17 1:50 PM) Micro? Performed Performed (12/14/17 1:50 PM) (12/14/17 7:37 AM) HEMATOLOGY Most recent to 1 2 oldest [Reference Range]: WBC [3.7-10.4 K/CMM] 8.8 K/CMM 9.6 K/CMM (12/15/17 3:38 AM) (12/14/17 7:37 AM) RBC [4.70-6.10 4.01 M/CMM 3.87 M/CMM M/CMM] *LOW* *LOW* (12/15/17 3:38 AM) (12/14/17 7:37 AM) Hgb [14.0-18.0 g/dL] 12.8 g/dL 12.4 g/dL *LOW* *LOW* (12/15/17 3:38 AM) (12/14/17 7:37 AM) Hct [42.0-54.0 %] 38.8 % 37.0 % *LOW* *LOW* (12/15/17 3:38 AM) (12/14/17 7:37 AM) MCV [80.0-94.0 fL] 96.7 fL 95.4 fL *HI* *HI* (12/15/17 3:38 AM) (12/14/17 7:37 AM) MCH [27.0-31.0 pg] 32.0 pg 32.2 pg *HI* *HI* (12/15/17 3:38 AM) (12/14/17 7:37 AM) MCHC [32.0-36.0 33.1 g/dL 33.7 g/dL g/dL] (12/15/17 3:38 AM) (12/14/17 7:37 AM) RDW [11.5-14.5 %] 14.5 % 14.1 % (12/15/17 3:38 AM) (12/14/17 7:37 AM) MPV [7.4-10.4 fL] 7.8 fL 8.1 fL (12/15/17 3:38 AM) (12/14/17 7:37 AM) Platelet [133-450 175 K/CMM 173 K/CMM K/CMM] (12/15/17 3:38 AM) (12/14/17 7:37 AM) Segs [45.0-75.0 %] 75.1 % 81.7 % *HI* *HI* (12/15/17 3:38 AM) (12/14/17 7:37 AM) Lymphocytes 17.0 % 14.4 % [20.0-40.0 %] *LOW* *LOW* (12/15/17 3:38 AM) (12/14/17 7:37 AM) Monocytes [2.0-12.0 7.4 % 3.2 % %] (12/15/17 3:38 AM) (12/14/17 7:37 AM) Eosinophils [0.0-4.0 0.4 % 0.5 % %] (12/15/17 3:38 AM) (12/14/17 7:37 AM) Basophils [0.0-1.0 0.1 % 0.2 % %] (12/15/17 3:38 AM) (12/14/17 7:37 AM) Segs-Bands # 6.6 K/CMM 7.9 K/CMM [1.5-8.1 K/CMM] (12/15/17 3:38 AM) (12/14/17 7:37 AM) Lymphocytes # 1.5 K/CMM 1.4 K/CMM [1.0-5.5 K/CMM] (12/15/17 3:38 AM) (12/14/17 7:37 AM) Monocytes # [0.0-0.8 0.7 K/CMM 0.3 K/CMM K/CMM] (12/15/17 3:38 AM) (12/14/17 7:37 AM) Immunizations No data available for this section Procedures Procedure Date Related Diagnosis Body Site Status Cholecystectomy Completed Knee replacement Completed Laparoscopic repair of hernia Completed Social History Social History Type Response Smoking Status Never smoker; Ready to change: No; Concerns about tobacco use in household: No; Exposure to Tobacco Smoke None; Cigarette Smoking Last 365 Days No; Reg Smoking Cessation Counseling No entered on: 12/14/17 Assessment and Plan Extracted from: Title: Discharge Summary * Author: Radha Hernandez MD Date: 12/16/17 Discharge Information keflex 500 mg po TID x 10 days and tramadol 50 mg q6 prn for pain per urology recs pt to follow up with urology and pcp within one week of discharge patient needs follow up on treatment and stent removal , pt verbalized understanding Discharge Plan Discharge Summary Plan Discharge Status: improved. Discharge instructions given: to patient. Discharge disposition: discharge to home. Prescriptions: continue same medications. Diagnosis Ureterolithiasis (ESU89-AF N20.1, Working, Medical). UTI (urinary tract infection) (QSX66-NM N39.0, Working, Medical). Extracted from: Title: Clinical Document Author: Jeannine Reza MD Date: 12/16/17 Progress Daily [facility] Completed: Nov, 08:31 by Jeannine Reza MD RM: [id number] - 1, [place] [id number] (: 1935) M Attending: Radha Hernandez MDPhone: Service: Pulmonology/Respiratory Therapy Reason for Admission: ABDOMINAL PAIN Working DRG: None Documented Code status: None Specified=FULL CODECurrent diet: Isolation: None Documented Allergies: sulfa drugs SUBJECTIVE Pt reports that his pains have resolved and he is anxious for d/c home. 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 Will give Tramadolo prn. Pt will f/u with me in 1-2 weeks for stent removal. Rx on chart Ready for Discharge (Yes/No)? Hua still necessary (Yes/No): Line still necessary (Yes/No): 24hr Labs 12/16 0651 POC Performing LocatioSee Note Glucose DHV502 H 12/15 2150 POC Performing LocatioSee Note Glucose VZW819 H 12/15 1602 POC Performing LocatioSee Note Glucose NDJ090 H 12/15 1459 POC Performing LocatioSee Note Glucose WOW117 H VitalsTmp(F)[id number] 12/16 07:2598.499823/595221--- 12/16 07:01 2092 21% 12/15 20:43 1696 2.0L/m 12/15 20:545339425/095832--- 12/15 18:627079038/900246--- 24 Hr Tmax: 99.1F (37.28c) at 12/15 11:17Vital Signs are the last 5 in the past 48 hours. DateWt(kg)Wt(lb)Ht(cm)Ht(in)Method 12/14 (initial) 96.82 213.00Measured . 67.00Stated I&ORecordInOutBal 11/2623hr Tot 1598 1500 98 11/2523hr Tot 1002 3729-1931 Medications (54) Active Scheduled Meds (11): 12/15/17 albuterol-ipratropium (DuoNeb inhalation solution) 3 ml NEB RQ6H 12/15/17 amLODIPine 5 mg PO Daily 12/15/17 amLODIPine 5 mg PO Daily 12/15/17 atorvastatin 10 mg PO Bedtime 12/14/17 cefTRIAXone + sterile water 10 mL (Rocephin + sterile water 10 mL) 1 gm IVP VONS80L 120 ml/hr 12/16/17 celecoxib (CeleBREX) 200 mg PO Daily 12/15/17 lisinopril 20 mg PO Daily 12/15/17 lisinopril 20 mg PO Daily 12/15/17 oxybutynin (Ditropan) 5 mg PO BID 12/15/17 sertraline 50 mg PO Daily 12/15/17 tamsulosin (Flomax) 0.4 mg PO Daily Unscheduled Meds: None PRN Meds (32): 12/14/17 Al hydroxide/Mg hydroxide/simethicone (Al hydroxide/Mg hydroxide/simethicone 200 mg-200 mg-20 mg/5 mL oral suspension) 30 mL PO Q4H 12/14/17 Dextrose 50% in Water IV (Dextrose 50% Syringe) 12.5 gm IVP PRN 12/14/17 Dextrose 50% in Water IV (Dextrose 50% Syringe) 25 gm IVP PRN 12/14/17 acetaminophen-hydrocodone (Alda 5/325 oral tablet) 1 tab PO Q4H 12/14/17 acetaminophen 650 mg PO Q4H 12/15/17 albuterol (ANES albuterol 0.083% inhalation solution) 2.49 mg NEB Q20Min 12/14/17 benzonatate (Tessalon Perles) 100 mg PO Q8H 12/14/17 bisacodyl 10 mg VT Daily 12/15/17 bisacodyl (Dulcolax Laxative) 10 mg PO BID 12/15/17 cloNIDine (cloNIDine 0.1 mg oral tablet) 0.1 mg PO TID 12/14/17 codeine-guaiFENesin (codeine-guaiFENesin 10 mg-100 mg/5 mL oral syrup) 10 mL PO Q4H 12/14/17 dextromethorphan-guaiFENesin (dextromethorphan-guaiFENesin 10 mg-100 mg/5 mL oral liquid) 10 mL PO Q4H 12/14/17 diphenhydrAMINE 25 mg PO Q6H 12/15/17 flumazenil (ANES flumazenil) 0.2 mg IVP PRN 12/14/17 glucagon 1 mg IM PRN 12/15/17 hydrALAZINE 10 mg IVP Q4H 12/15/17 hydrALAZINE (ANES hydrALAZINE) 10 mg IVP Q20Min 12/15/17 hydromorphone (ANES HYDROmorphone) 0.5 mg IVP Q5Min 12/14/17 insulin lispro 1 unit SUB-Q TID-Before Meals 12/14/17 insulin lispro 2 unit SUB-Q TID-Before Meals 12/14/17 insulin lispro 3 unit SUB-Q TID-Before Meals 12/14/17 insulin lispro 4 unit SUB-Q TID-Before Meals 12/14/17 insulin lispro 5 unit SUB-Q TID-Before Meals 12/15/17 labetalol (ANES labetalol) 10 mg IVP Q5Min 12/14/17 magnesium hydroxide (Milk of Magnesia) 30 mL PO Q3H 12/15/17 meperidine (ANES meperidine) 12.5 mg IVP Q30Min 12/14/17 morphine Sulfate 4 mg IVP Q4H 12/15/17 morphine Sulfate (ANES morphine Sulfate) 2 mg IVP Q5Min 12/15/17 morphine Sulfate (ANES morphine Sulfate) 4 mg IVP Q5Min 12/15/17 naloxone (ANES naloxone) 0.4 mg IVP Q2MIN 12/14/17 ondansetron 4 mg IVP Q8H 12/14/17 simethicone 80 mg PO Q6H One Time Meds (10): (Completed) ePHEDrine (ePHEDrine (ANES)) IV ONCE (Completed) fentaNYL (fentaNYL (ANES)) IV ONCE (Completed) glycopyrrolate (glycopyrrolate (ANES)) IV ONCE (Completed) lidocaine (lidocaine (ANES)) IV ONCE (Completed) neostigmine (neostigmine (ANES)) IV ONCE (Completed) ondansetron (ondansetron (ANES)) IV ONCE (Completed) phenylephrine (phenylephrine (ANES)) IV ONCE (Completed) propofol (propofol (ANES)) IV ONCE (Completed) rocuronium (rocuronium (ANES)) IV ONCE (Completed) succinylcholine (succinylcholine (ANES)) IV ONCE Continuous Infusions (1): 12/15/17 Lactated Ringers Injection IV 1,000 mL (Lactated Ringers IV 1,000 mL) 1,000 mL 40 ml/hr
--- OUTSIDE RECORDS SUMMARY | 2018-09-10 10:03 | XMS REPORT | Summary of Care ---
Author Author [facility] [place] Organization [facility] [place] Address Unknown Phone Unavailable Encounter HQ Encntr_alias(FIN) [id number] Date(s): 05/15/18 - 05/15/18 [facility] [id number] [place], [place] [address] [id number] Discharge Disposition: Home or Self Care Attending Physician: Jeannine Reza MD Vital Signs No data available for this section Problem List No data available for this section Allergies, Adverse Reactions, Alerts Substance Reaction Severity Status sulfa drugs Active Medications No data available for this section Results No data available for this section [...] No entered on: 12/14/17 Assessment and Plan No data available for this section
--- OUTSIDE RECORDS SUMMARY | 2018-09-10 10:03 | XMS REPORT | Continuity of Care Document ---
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 12/22/2017 03/24/2018 [facility] ABDOMINAL PAIN Active 12/14/2017 [facility] FALL, HEAD INJURY Active 10/25/2017 [facility] Discharge Diagnosis: Fall 10/25/2017 10/28/2017 [facility] Discharge Diagnosis: Laceration of scalp without foreign body 10/25/2017 10/28/2017 [facility] Discharge Diagnosis: Head contusion 10/25/2017 10/28/2017 [facility] Calculus of ureter 03/24/2018 [facility] Type 2 diabetes mellitus without complications 03/24/2018 [facility] Urinary tract infection, site not specified 03/24/2018 [facility] Other obstructive and reflux uropathy 03/24/2018 [facility] Benign prostatic hyperplasia with lower urinary tract symptoms 03/24/2018 [facility] Essential hypertension 03/24/2018 [facility] Urge incontinence 03/24/2018 [facility] CALCULUS OF URETER Active [facility] Medications Medication Details Route Status Patient Instructions Ordering Provider Order Date Source Amlodipine 5 MG / Benazepril hydrochloride 20 MG Oral Capsule 1 cap, Route: PO, Drug Form: CAP, Dosing Weight 94.682, kg, Daily, Start date: 12/16/17 9:00:00 [employer], Duration: 30 day, Stop date: 01/14/18 9:00:00 [employer] No Longer Active 12/16/2017 [facility] Celebrex 200 mg, 2 cap, Route: PO, Drug form: CAP, Daily, Dosing Weight 94.682, kg, Start date: 12/16/17 9:00:00 [employer], Duration: 30 day, Stop date: 01/14/18 9:00:00 CSTNotes: NSAID. Please check indication. Not for seizure. (Same As: CeleBREX ) Inactive 12/16/2017 [facility] tramadol hydrochloride 50 MG Oral Tablet 50 mg, 1 tab, Route: PO, Drug form: TAB, Q6H, Dosing Weight 94.682, kg, PRN Pain Score 1-3, Start date: 12/16/17 8:39:00 [employer], Duration: 30 day, Stop date: 01/15/18 8:38:00 CSTNotes: Not to exceed 400mg/day. (Same As: Ultram) Inactive 12/16/2017 [facility] tramadol hydrochloride 50 MG Oral Tablet 50 mg=1 tab, PO, Q4H, PRN Pain, X 10 day, # 24 tab, 0 Refill(s) No Longer Active 12/16/2017 [facility] Cephalexin 500 MG Oral Capsule [Keflex] 500 mg=1 cap, PO, TID, X 10 day, # 30 cap, 0 Refill(s) No Longer Active 12/16/2017 [facility] atorvastatin 10 mg, 1 tab, Route: PO, Drug form: TAB, Bedtime, Dosing Weight 94.682, kg, Start date: 12/15/17 21:00:00 [employer], Duration: 30 day, Stop date: 01/13/18 21:00:00 CSTNotes: (Same As: Lipitor) No Longer Active 12/16/2017 [facility] tolterodine 2 mg, Route: PO, Drug form: TAB, BID, Dosing Weight 94.682, kg, Start date: 12/15/17 17:00:00 [employer], Duration: 30 day, Stop date: 01/14/18 9:00:00 [employer] Inactive 12/15/2017 [facility] neostigmine (ANES) Route: IV, Drug form: INJ, ONCE, Stop date: 12/15/17 14:06:00 [employer] Inactive 12/15/2017 [facility] glycopyrrolate (ANES) Route: IV, Drug form: INJ, ONCE, Stop date: 12/15/17 14:06:00 [employer] Inactive 12/15/2017 [facility] ondansetron (ANES) Route: IV, Drug form: INJ, ONCE, Stop date: 12/15/17 14:06:00 [employer] Inactive 12/15/2017 [facility] Albuterol 0.833 MG/ML / Ipratropium [place] 0.167 MG/ML Inhalant Solution [DuoNeb] 3 ml, Route: NEB, Drug Form: SOLN, Dosing Weight 94.682, kg, RQ6H, Start date: 12/15/17 14:00:00 [employer], Duration: 30 day, Stop date: 01/14/18 8:00:00 CSTNotes: (Same as: Duoneb) No Longer Active 12/15/2017 [facility] lidocaine (ANES) Route: IV, Drug form: INJ, ONCE, Stop date: 12/15/17 13:53:00 [employer] Inactive 12/15/2017 [facility] propofol (ANES) Route: IV, Drug form: INJ, ONCE, Stop date: 12/15/17 13:53:00 [employer] Inactive 12/15/2017 [facility] rocuronium (ANES) Route: IV, Drug form: INJ, ONCE, Stop date: 12/15/17 13:53:00 [employer] Inactive 12/15/2017 [facility] succinylcholine (ANES) Route: IV, Drug form: INJ, ONCE, Stop date: 12/15/17 13:53:00 [employer] Inactive 12/15/2017 [facility] fentaNYL (ANES) Route: IV, Drug form: INJ, ONCE, Stop date: 12/15/17 13:53:00 [employer] Inactive 12/15/2017 [facility] ePHEDrine (ANES) Route: IV, Drug form: INJ, ONCE, Stop date: 12/15/17 13:48:00 [employer] Inactive 12/15/2017 [facility] phenylephrine (ANES) Route: IV, Drug form: INJ, ONCE, Stop date: 12/15/17 13:48:00 [employer] Inactive 12/15/2017 [facility] Lactated Ringers Injection IV (ANES) 1000 mL Route: IV, Total Volume: 1,000, Start date: 12/15/17 12:42:00 [employer], Stop date: 12/15/17 13:42:00 [employer] Inactive 12/15/2017 [facility] Lactated Ringers IV 1,000 mL 1,000 mL, Rate: 40 ml/hr, Infuse over: 25 hr, Route: IV, Dosing Weight 94.682 kg, Total Volume: 1,000, Start date: 12/15/17 11:23:00 [employer], Duration: 30 day, Stop date: 01/14/18 11:22:00 [employer], 2.14, m2 No Longer Active 12/15/2017 [facility] Flumazenil 0.2 mg, 2 mL, Route: IVP, Drug form: INJ, PRN, Dosing Weight 94.682, kg, PRN Benzodiazepine Reversal, Initial dose, Start date: 12/15/17 11:16:00 [employer], Duration: 30 day, Stop date: 01/14/18 11:15:00 C STNotes: (Same as: Romazicon) No Longer Active 12/15/2017 [facility] Naloxone 0.4 mg, 1 mL, Route: IVP, Drug form: INJ, Q2MIN, Dosing Weight 94.682, kg, PRN Narcotic Reversal, Start date: 12/15/17 11:16:00 [employer], Duration: 8 doses or times, Stop date: Limited # of timesNotes: Same as Narcan No Longer Active 12/15/2017 [facility] Morphine 4 mg, 1 mL, Route: IVP, Drug form: SOLN, Q5Min, Dosing Weight 94.682, kg, PRN Pain Score 7-10, Start date: 12/15/17 11:16:00 [employer], Duration: 3 doses or times, Stop date: Limited # of timesNotes: (Same as:MORPhine Sulfate) No Longer Active 12/15/2017 [facility] Hydromorphone 0.5 mg, 0.5 mL, Route: IVP, Drug form: INJ, Q5Min, Dosing Weight 94.682, kg, PRN Pain Score 7-10, Start date: 12/15/17 11:16:00 [employer], Duration: 4 doses or times, Stop date: Limited # of timesNotes: Sa me as: Dilaudid No Longer Active 12/15/2017 [facility] Albuterol 0.83 MG/ML Inhalant Solution 2.49 mg, 3 mL, Route: NEB, Drug form: SOLN, Q20Min, Dosing Weight 94.682, kg, PRN Wheezing, Priority: STAT, Start date: 12/15/17 11:16:00 [employer], Duration: 30 day, Stop date: 01/14/18 11:15:00 CSTNotes: SEE RT DOCUMENTATION (Same as: Proventil) No Longer Active 12/15/2017 [facility] Hydralazine 10 mg, 0.5 mL, Route: IVP, Drug form: INJ, Q20Min, Dosing Weight 94.682, kg, PRN Elevated BP, Start date: 12/15/17 11:16:00 [employer], Duration: 2 doses or times, Stop date: Limited # of timesNotes: (Same as: Apresoline) Push over 5 minutes No Longer Active 12/15/2017 [facility] Labetalol 10 mg, 2 mL, Route: IVP, Drug form: INJ, Q5Min, Dosing Weight 94.682, kg, PRN Elevated BP, Start date: 12/15/17 11:16:00 [employer], Duration: 5 doses or times, Stop date: Limited # of timesNotes: (Same as: No rmodyne, Trandate) Push over 2 minutes Give bolus over 2-3 minutes. No Longer Active 12/15/2017 [facility] Acetaminophen 1,000 mg, 2 tab, Route: PO, Drug form: TAB, ONCE, Dosing Weight 94.682, kg, PRN Pain Score 1-3, Start date: 12/15/17 11:16:00 CSTNotes: Max acetaminophen 4000 mg/day (4 gm/day). (Same as: Tylenol Extra Strength) No Longer Active 12/15/2017 [facility] Meperidine 12.5 mg, 0.5 mL, Route: IVP, Drug form: INJ, Q30Min, Dosing Weight 94.682, kg, PRN Other -See Comment, For shivering, Start date: 12/15/17 11:16:00 [employer], Duration: 2 doses or times, Stop date: Limited # of timesNotes: (Same as: Demerol) "Use Precaution in Elderly, Seizure disorders, and Renal impairment" No Longer Active 12/15/2017 [facility] Ondansetron 4 mg, 2 mL, Route: IVP, Drug form: INJ, ONCE, Dosing Weight 94.682, kg, PRN Nausea & Vomiting, Start date: 12/15/17 11:16:00 CSTNotes: (Same as: Zofran) MEDICATION WASTE Product Size: 4 mg Product Wasted: ___ mg No Longer Active 12/15/2017 [facility] Ditropan 5 mg, 1 tab, Route: PO, Drug form: TAB, BID, Start date: 12/15/17 10:48:00 [employer], Duration: 30 day, Stop date: 01/14/18 9:00:00 CSTNotes: Same as: Ditropan) No Longer Active 12/15/2017 [facility] Sertraline 50 mg, 1 tab, Route: PO, Drug form: TAB, Daily, Dosing Weight 94.682, kg, Start date: 12/15/17 10:46:00 [employer], Duration: 30 day, Stop date: 01/14/18 9:00:00 CSTNotes: (Same as: Zoloft) No Longer Active 12/15/2017 [facility] lisinopril 20 mg, 1 tab, Route: PO, Drug form: TAB, Daily, Start date: 12/15/17 10:42:00 [employer], Duration: 30 day, Stop date: 01/14/18 9:00:00 CSTNotes: (Same as: Prinivil, Zestril) No Longer Active 12/15/2017 [facility] amLODIPine 5 mg, 1 tab, Route: PO, Drug form: TAB, Daily, Start date: 12/15/17 10:40:00 [employer], Duration: 30 day, Stop date: 01/14/18 9:00:00 CSTNotes: (Same as: Norvasc) No Longer Active 12/15/2017 [facility] sertraline 50 mg oral tablet 50 mg=1 tab, PO, Daily, # 30 tab, 0 Refill(s) Active 12/15/2017 [facility] tolterodine 2 mg oral tablet 2 mg=1 tab, PO, BID, # 180 tab, 0 Refill(s) Active 12/15/2017 [facility] celecoxib 200 MG Oral Capsule [Celebrex] 200 mg=1 cap, PO, Daily, # 30 cap, 0 Refill(s) Active 12/15/2017 [facility] Amlodipine 5 MG / Benazepril hydrochloride 20 MG Oral Capsule 1 cap, PO, Daily, # 30 cap, 0 Refill(s) Active 12/15/2017 [facility] atorvastatin 10 mg oral tablet 10 mg=1 tab, PO, Bedtime, # 30 tab, 0 Refill(s) Active 12/15/2017 [facility] amLODIPine 5 mg, 1 tab, Route: PO, Drug form: TAB, Daily, Start date: 12/15/17 9:00:00 [employer], Duration: 30 day, Stop date: 01/13/18 9:00:00 CSTNotes: (Same as: Norvasc) No Longer Active 12/15/2017 [facility] Flomax 0.4 mg, 1 cap, Route: PO, Drug form: CAP, Daily, Dosing Weight 94.682, kg, Start date: 12/15/17 9:00:00 [employer], Duration: 30 day, Stop date: 01/13/18 9:00:00 CSTNotes: (Same As: Flomax) "Do Not Crush" No Longer Active 12/15/2017 [facility] VESICARE 10 mg, Route: PO, Drug form: TAB, Daily, Dosing Weight 94.682, kg, Start date: 12/15/17 9:00:00 [employer], Duration: 30 day, Stop date: 01/13/18 9:00:00 [employer] No Longer Active 12/15/2017 [facility] Amlodipine 5 MG / Benazepril hydrochloride 20 MG Oral Capsule 1 cap, Route: PO, Drug Form: CAP, Dosing Weight 94.682, kg, Daily, Start date: 12/15/17 9:00:00 [employer], Duration: 30 day, Stop date: 01/13/18 9:00:00 [employer] No Longer Active 12/15/2017 [facility] lisinopril 20 mg, 1 tab, Route: PO, Drug form: TAB, Daily, Start date: 12/15/17 9:00:00 [employer], Duration: 30 day, Stop date: 01/13/18 9:00:00 CSTNotes: (Same as: Prinivil, Zestril) No Longer Active 12/15/2017 [facility] Simethicone 80 mg, Route: PO, Drug form: CHEWTAB, Q6H, Dosing Weight 94.682, kg, PRN Gas, Start date: 12/15/17 8:01:00 [employer], Duration: 2 doses or times, Stop date: Limited # of times Inactive 12/15/2017 [facility] Hydralazine 10 mg, 0.5 mL, Route: IVP, Drug form: INJ, Q4H, Dosing Weight 94.682, kg, PRN Elevated BP, Start date: 12/15/17 8:01:00 [employer], Duration: 30 day, Stop date: 01/14/18 8:00:00 CSTNotes: (Same as: Dolly lee) Push over 5 minutes No Longer Active 12/15/2017 [facility] Clonidine Hydrochloride 0.1 MG Oral Tablet 0.1 mg, 1 tab, Route: PO, Drug form: TAB, TID, Dosing Weight 94.682, kg, PRN Elevated BP, Start date: 12/15/17 8:01:00 [employer], Duration: 30 day, Stop date: 01/14/18 8:00:00 CSTNotes: (Same As: Catapres) No Longer Active 12/15/2017 [facility] Acetaminophen 650 mg, Route: PO, Drug form: TAB, Q4H, Dosing Weight 94.682, kg, PRN For Temp > 100.4 F, Start date: 12/15/17 8:01:00 [employer], Duration: 30 day, Stop date: 01/14/18 8:00:00 [employer] Inactive 12/15/2017 [facility] Acetaminophen 325 MG / Hydrocodone Bitartrate 5 MG Oral Tablet [[place] 5/325] 1 tab, Route: PO, Drug Form: TAB, Dosing Weight 94.682, kg, Q4H, PRN Pain Score 4-6, Start date: 12/15/17 8:01:00 [employer], Duration: 30 day, Stop date: 01/14/18 8:00:00 [employer] Inactive 12/15/2017 [facility] Diphenhydramine 25 mg, Route: PO, Drug form: TAB, Q6H, Dosing Weight 94.682, kg, PRN Itching, Start date: 12/15/17 8:01:00 [employer], Duration: 30 day, Stop date: 01/14/18 8:00:00 [employer] Inactive 12/15/2017 [facility] Dextromethorphan Hydrobromide 2 MG/ML / Guaifenesin 20 MG/ML Oral Solution 10 mL, Route: PO, Drug Form: LIQ, Dosing Weight 94.682, kg, Q4H, PRN Cough, Start date: 12/15/17 8:01:00 [employer], Duration: 30 day, Stop date: 01/14/18 8:00:00 [employer] Inactive 12/15/2017 [facility] Codeine Phosphate 2 MG/ML / Guaifenesin 20 MG/ML Oral Solution 10 mL, Route: PO, Drug Form: LIQ, Dosing Weight 94.682, kg, Q4H, PRN Cough, Start date: 12/15/17 8:01:00 [employer], Duration: 30 day, Stop date: 01/14/18 8:00:00 [employer] Inactive 12/15/2017 [facility] Ondansetron 4 mg, Route: IVP, Drug form: INJ, Q8H, Dosing Weight 94.682, kg, PRN Nausea & Vomiting, Start date: 12/15/17 8:01:00 [employer], Duration: 30 day, Stop date: 01/14/18 8:00:00 [employer] Inactive 12/15/2017 [facility] Tessalon Perles 100 mg, Route: PO, Drug form: CAP, Q8H, Dosing Weight 94.682, kg, PRN Cough, Start date: 12/15/17 8:01:00 [employer], Duration: 30 day, Stop date: 01/14/18 8:00:00 [employer] Inactive 12/15/2017 [facility] magnesium citrate 58.2 MG/ML Oral Solution 150 ml, Route: PO, Drug Form: LIQ, Dosing Weight 94.682, kg, ONCE, PRN Constipation, Start date: 12/15/17 8:01:00 CSTNotes: (Same as: Citrate of Magnesia) Concentration: 1.745 gm / 30 mL No Longer Active 12/15/2017 [facility] Dulcolax Laxative 10 mg, 2 tab, Route: PO, Drug form: ECTAB, BID, Dosing Weight 94.682, kg, PRN Constipation, Start date: 12/15/17 8:01:00 [employer], Duration: 30 day, Stop date: 01/14/18 8:00:00 CSTNotes: (Same As: Dulcolax, Correctol) (Do Not Crush) "Do Not Crush" No Longer Active 12/15/2017 [facility] Al hydroxide/Mg hydroxide/simethicone 200 mg-200 mg-20 mg/5 mL oral suspension 30 mL, Route: PO, Drug Form: SUSP, Dosing Weight 94.682, kg, Q4H, PRN Indigestion, Start date: 12/15/17 8:01:00 [employer], Duration: 30 day, Stop date: 01/14/18 8:00:00 [employer] Inactive 12/15/2017 [facility] Bisacodyl 10 mg, Route: ND, Drug form: SUPP, Daily, Dosing Weight 94.682, kg, PRN Constipation, Start date: 12/15/17 8:01:00 [employer], Duration: 30 day, Stop date: 01/14/18 8:00:00 [employer] Inactive 12/15/2017 [facility] Milk of Magnesia 30 mL, Route: PO, Drug Form: SUSP, Dosing Weight 94.682, kg, Q3H, PRN Constipation, Start date: 12/15/17 8:01:00 [employer], Duration: 2 doses or times, Stop date: Limited # of times Inactive 12/15/2017 [facility] Acetaminophen 650 mg, 2 tab, Route: PO, Drug form: TAB, Q4H, Dosing Weight 94.682, kg, PRN For Temp > 100.4 F, Start date: 12/14/17 18:04:00 [employer], Duration: 30 day, Stop date: 01/13/18 18:03:00 CSTNotes: Do not exceed 4 gm/day. (Same as: Tylenol) No Longer Active 12/15/2017 [facility] Diphenhydramine 25 mg, 1 tab, Route: PO, Drug form: TAB, Q6H, Dosing Weight 94.682, kg, PRN Itching, Start date: 12/14/17 18:04:00 [employer], Stop date: 01/13/18 18:03:00 [employer] No Longer Active 12/15/2017 [facility] Ondansetron 4 mg, 2 mL, Route: IVP, Drug form: INJ, Q8H, Dosing Weight 94.682, kg, PRN Nausea & Vomiting, Start date: 12/14/17 18:04:00 [employer], Duration: 30 day, Stop date: 01/13/18 18:03:00 CSTNotes: (Same as: Zofran) MEDICATION WASTE Product Size: 4 mg Product Wasted: ___ mg No Longer Active 12/15/2017 [facility] Dextromethorphan Hydrobromide 2 MG/ML / Guaifenesin 20 MG/ML Oral Solution 10 mL, Route: PO, Drug Form: LIQ, Dosing Weight 94.682, kg, Q4H, PRN Cough, Start date: 12/14/17 18:04:00 [employer], Duration: 30 day, Stop date: 01/13/18 18:03:00 CSTNotes: (dextromethorphan-guaifenesin 10-100/5 ml LIQ) (Same as: Robitussin-DM) No Longer Active 12/15/2017 [facility] Codeine Phosphate 2 MG/ML / Guaifenesin 20 MG/ML Oral Solution 10 mL, Route: PO, Drug Form: LIQ, Dosing Weight 94.682, kg, Q4H, PRN Cough, Start date: 12/14/17 18:04:00 [employer], Duration: 30 day, Stop date: 01/13/18 18:03:00 CSTNotes: (Same As: Robitussin AC) No Longer Active 12/15/2017 [facility] Tessalon Perles 100 mg, 1 cap, Route: PO, Drug form: CAP, Q8H, Dosing Weight 94.682, kg, PRN Cough, Start date: 12/14/17 18:04:00 [employer], Duration: 30 day, Stop date: 01/13/18 18:03:00 CSTNotes: (Same As: Tessalon Felisa es) "Do Not Crush" No Longer Active 12/15/2017 [facility] Simethicone 80 mg, 1 tab, Route: PO, Drug form: CHEWTAB, Q6H, Dosing Weight 94.682, kg, PRN Gas, Start date: 12/14/17 18:04:00 [employer], Duration: 2 doses or times, Stop date: Limited # of timesNotes: (Same as: Mylic on) No Longer Active 12/15/2017 [facility] Al hydroxide/Mg hydroxide/simethicone 200 mg-200 mg-20 mg/5 mL oral suspension 30 mL, Route: PO, Drug Form: SUSP, Dosing Weight 94.682, kg, Q4H, PRN Indigestion, Start date: 12/14/17 18:04:00 [employer], Duration: 30 day, Stop date: 01/13/18 18:03:00 CSTNotes: (aluminum hydroxide-magnesium hyd- simethicone 115-944-05ck/5ml 30 ml ud TAY) No Longer Active 12/15/2017 [facility] Bisacodyl 10 mg, 1 supp, Route: ND, Drug form: SUPP, Daily, Dosing Weight 94.682, kg, PRN Constipation, Start date: 12/14/17 18:04:00 [employer], Duration: 30 day, Stop date: 01/13/18 18:03:00 CSTNotes: (Same As: Dulcolax, Bisco-Lax) No Longer Active 12/15/2017 [facility] Milk of Magnesia 30 mL, Route: PO, Drug Form: SUSP, Dosing Weight 94.682, kg, Q3H, PRN Constipation, Start date: 12/14/17 18:04:00 [employer], Duration: 2 doses or times, Stop date: Limited # of timesNotes: (Same as: Milk o f Magnesia, MOM) No Longer Active 12/15/2017 [facility] Insulin Lispro 1 unit, 0.01 mL, Route: SUB-Q, Drug form: SOLN, TID-Before Meals, Dosing Weight 94.682, kg, PRN Blood Glucose Results, Start date: 12/14/17 18:03:00 [employer], Duration: 30 day, Stop date: 01/13/18 18:02:0 0 CSTNotes: (Same as: Humalog ) Roll in palms of hands gently; Do not shake `vigorously. "Single Patient Use Only " WASTE: F/P - Black; E - Municipal Trash Bin Stable for 28 days at room temperature. Expires in days from Date No Longer Active 12/15/2017 [facility] Glucagon 1 mg, Route: IM, Drug form: PDR/INJ, PRN, Dosing Weight 94.682, kg, PRN Blood Glucose Results, Start date: 12/14/17 18:03:00 [employer], Duration: 30 day, Stop date: 01/13/18 18:02:00 [employer] No Longer Active 12/15/2017 [facility] Dextrose 50% Syringe 25 gm, 50 mL, Route: IVP, Drug Form: INJ, Dosing Weight 94.682, kg, PRN, PRN Blood Glucose Results, Start date: 12/14/17 18:03:00 [employer], Duration: 30 day, Stop date: 01/13/18 18:02:00 [employer] No Longer Active 12/15/2017 [facility] Rocephin 1 gm, Route: IVP, [id number], Dosing Weight 94.682, kg, Start date: 12/14/17 17:00:00 [employer], Duration: 10 day, Stop date: 12/24/17 10:00:00 [employer], ABX Indication: Genital Tract InfectionNotes: (Same As: Rocephin). Use with 100 mL NS and infuse over 30 min MEDICATION WASTE Product Size: 1000 mg Product Wasted: ___ mg No Longer Active 12/14/2017 [facility] Acetaminophen 325 MG / Hydrocodone Bitartrate 5 MG Oral Tablet [[place] 5/325] 1 tab, Route: PO, Drug Form: TAB, Dosing Weight 94.682, kg, Q4H, PRN Pain Score 1-3, Start date: 12/14/17 16:54:00 [employer], Stop date: 12/16/17 8:59:00 CSTNotes: (Same as: [place] 325/5) Do not exceed 4gm/day of acetaminophen. No Longer Active 12/14/2017 [facility] Morphine 4 mg, 1 mL, Route: IVP, Drug form: SOLN, Q4H, Dosing Weight 94.682, kg, PRN Pain Score 7-10, Start date: 12/14/17 16:54:00 [employer], Duration: 30 day, Stop date: 01/13/18 16:53:00 CSTNotes: (Same as:MORPhine Sulfate) No Longer Active 12/14/2017 [facility] Sertraline PO, Daily, 0 Refill(s) No Longer Active 12/14/2017 [facility] Amlodipine 5 MG / Benazepril hydrochloride 20 MG Oral Capsule 1 cap, PO, Daily, 0 Refill(s) No Longer Active 12/14/2017 [facility] Tamsulosin hydrochloride 0.4 MG Oral Capsule [Flomax] 0.4 mg=1 cap, PO, Daily, 0 Refill(s) Active 12/14/2017 [facility] Lipitor PO, Daily, 0 Refill(s) No Longer Active 12/14/2017 [facility] Metformin 500 mg, PO, BID, 0 Refill(s) Active 12/14/2017 [facility] tolterodine PO, Daily, 0 Refill(s) No Longer Active 12/14/2017 [facility] solifenacin succinate 10 MG Oral Tablet [VESICARE] 10 mg=1 tab, PO, Daily, 0 Refill(s) Active 12/14/2017 [facility] Azithromycin 500 mg, Route: IVPB, ONCE, Dosing Weight 96.818, kg, Priority: STAT, Start date: 12/14/17 12:09:00 [employer], Stop date: 12/14/17 12:09:00 [employer], ABX Indication: Pneumonia Inactive 12/14/2017 [facility] Morphine 4 mg, Route: IVP, Drug form: INJ, ONCE, Dosing Weight 96.818, kg, Priority: STAT, Start date: 12/14/17 10:14:00 [employer], Stop date: 12/14/17 10:14:00 [employer] Inactive 12/14/2017 [facility] normal saline 0.9% IV 1000 mL 1,000 mL, Rate: 100 ml/hr, Infuse over: 10 hr, Route: IV, Dosing Weight 96.818 kg, Total Volume: 1,000, Priority: STAT, Start date: 12/14/17 10:13:00 [employer], Duration: 1 doses or times, Stop date: 12/14/17 20:12:00 [employer], 2.16, m2 Inactive 12/14/2017 [facility] Rocephin 1 gm, Route: IVPB, Drug form: PDR/INJ, ONCE, Dosing Weight 96.818, kg, Priority: STAT, Start date: 12/14/17 9:40:00 [employer], Stop date: 12/14/17 9:40:00 [employer], ABX Indication: Urinary Tract Infection Inactive 12/14/2017 [facility] Ondansetron 4 mg, Route: IVP, Drug form: INJ, ONCE, Dosing Weight 96.818, kg, Priority: STAT, Start date: 12/14/17 7:25:00 [employer], Stop date: 12/14/17 7:25:00 [employer] Inactive 12/14/2017 [facility] Morphine 2 mg, Route: IVP, Drug form: INJ, ONCE, Dosing Weight 96.818, kg, Priority: STAT, Start date: 12/14/17 7:25:00 [employer], Stop date: 12/14/17 7:25:00 [employer] Inactive 12/14/2017 [facility] NS (Bolus) IV 1,000 mL, 1,000 ml/hr, Infuse Over: 1 hr, Route: IV, ONCE, Priority: STAT, Dosing Weight 96.818 kg, Start date: 12/14/17 7:25:00 [employer], Stop date: 12/14/17 7:25:00 [employer] Inactive 12/14/2017 [facility] Cephalexin 500 MG Oral Capsule [Keflex] 500 mg=1 cap, PO, TID, X 10 day, # 30 cap, 0 Refill(s) Active 10/26/2017 [facility] lidocaine 2% 1 inj, Route: SUB-Q, Dosing Weight 88.636, kg, ONCE, STAT, Start date: 10/25/17 18:33:00 [employer], Stop date: 10/25/17 18:33:00 [employer] Inactive 10/26/2017 [facility] Allergies, Adverse Reactions, Alerts Substance Category Reaction Severity Reaction type Status Date Reported Comments Source sulfa drugs Assertion Drug allergy Active [facility] [place] Immunizations Immunization Date Given Site Status Last Updated Comments Source Results Order Name Results Value Reference Range Date Interpretation Comments Source Retroperitoneal Complete US Retroperitoneal Complete US Clinical Indication: N13.30 Unspecified hydronephrosis - h/o stones and hydronephrosis; Comparison: CT abdomen pelvis 12/14/2017 TECHNIQUE: Multiple longitudinal and transverse real time sonographic images of the kidneys and urinary bladder are obtained. FINDINGS: KIDNEY: The right kidney measures 10.8 x 5.8 x 5.7 cm. The left kidney measures 11.5 x 5.4 x 5.2 cm. The kidneys are normal in size, shape, contour, and position. The cortices are normal in thickness and the corticomedullary differentiation is maintained. Moderate right hydronephrosis is not significantly changed. Moderate left hydronephrosis is not significantly changed. Visualized portions of the distal ureters are dilated. There is a 5.3 x 3.2 x 5.1 cm simple left renal cyst. No appreciable nephrolithiasis. BLADDER: Layering debris is present in the urinary bladder. PROSTATE: The prostate measures 5.9 x 4.4 x 5.3 cm. AORTA AND IVC: Visualized portions of the IVC are unremarkable. The proximal abdominal aorta is ectatic, measuring 2.9 cm. Visualized portions of the proximal common iliac arteries are unremarkable ASCITES: No ascites noted. IMPRESSION: 1. Moderate bilateral hydronephrosis, not significantly changed. The visualized portions of the distal ureters are also dilated. 2. Layering debris in the urinary bladder. 3. A 5.3 cm simple left renal cyst. 4. No sonographic evidence of nephrolithiasis. : [id number] 05/15/2018 - - Read by: Sandra Chauhan MD Dictated Date/time: 05/15/18 16:44 Electronically Signed by: Sandra Chauhan MD 05/15/18 16:48 FINAL REPORT [facility] [place] Renal pyelogram retrograde DX Renal pyelogram retrograde DX Bilateral retrograde pyelograms: Spot images from Cystoscopy are submitted. Contrast injection into the distal ureters shows "J-ing" of the distal ureters with dilatation. The right collecting system and right ureter are opacified an moderately dilated. The left collecting system and ureter are otherwise not filled. Right ureteral stent placement in satisfactory position is noted on the final image. DLAWRENCE-PC 12/15/2017 - - Read by: Randolph Sierra MD Dictated Date/time: 12/15/17 16:19 Electronically Signed by: Randolph Sierra MD 12/15/17 16:22 FINAL REPORT [facility] ELECTROLYTES AGAP 12.7 meq/L 10.0 - 20.0 12/15/2017 [facility] ELECTROLYTES eGFR 84 mL/min/1.73m2 12/15/2017 Result Comment: The eGFR is calculated using the [...] from the National Kidney Disease Education Program (NKDEP) which additionally recommends that when the eGFR is used in patients with extremes of body mass index for purposes of drug dosing, the eGFR should be multiplied by the estimated BMI. [facility] ELECTROLYTES Calcium Lvl 8.9 mg/dL 8.5 - 10.5 12/15/2017 [facility] ELECTROLYTES Potassium Lvl 3.7 meq/L 3.5 - 5.1 12/15/2017 [facility] ELECTROLYTES Chloride Lvl 106 meq/L 95 - 109 12/15/2017 [facility] ELECTROLYTES CO2 27 meq/L 24 - 32 12/15/2017 [facility] ELECTROLYTES BUN 12 mg/dL 7 - 22 12/15/2017 [facility] ELECTROLYTES Glucose Lvl 111 mg/dL 70 - 99 12/15/2017 [facility] ELECTROLYTES Creatinine Lvl 0.79 mg/dL 0.50 - 1.40 12/15/2017 [facility] ELECTROLYTES Sodium Lvl 142 meq/L 135 - 145 12/15/2017 [facility] HEMATOLOGY MPV 7.8 fL 7.4 - 10.4 12/15/2017 [facility] HEMATOLOGY Platelet 175 K/CMM 133 - 450 12/15/2017 [facility] HEMATOLOGY RDW 14.5 % 11.5 - 14.5 12/15/2017 [facility] MCHC 33.1 g/dL 32.0 - 36.0 12/15/2017 [facility] MCH 32.0 pg 27.0 - 31.0 12/15/2017 [facility] MCV 96.7 fL 80.0 - 94.0 12/15/2017 [facility] Hct 38.8 % 42.0 - 54.0 12/15/2017 [facility] HEMATOLOGY Hgb 12.8 g/dL 14.0 - 18.0 12/15/2017 [facility] HEMATOLOGY WBC 8.8 K/CMM 3.7 - 10.4 12/15/2017 [facility] HEMATOLOGY RBC 4.01 M/CMM 4.70 - 6.10 12/15/2017 [facility] HEMATOLOGY Monocytes # 0.7 K/CMM 0.0 - 0.8 12/15/2017 [facility] HEMATOLOGY Lymphocytes 17.0 % 20.0 - 40.0 12/15/2017 [facility] HEMATOLOGY Eosinophils 0.4 % 0.0 - 4.0 12/15/2017 [facility] HEMATOLOGY Monocytes 7.4 % 2.0 - 12.0 12/15/2017 [facility] HEMATOLOGY Segs 75.1 % 45.0 - 75.0 12/15/2017 [facility] HEMATOLOGY Lymphocytes # 1.5 K/CMM 1.0 - 5.5 12/15/2017 [facility] HEMATOLOGY Segs-Bands # 6.6 K/CMM 1.5 - 8.1 12/15/2017 [facility] HEMATOLOGY Basophils 0.1 % 0.0 - 1.0 12/15/2017 [facility] URINE AND STOOL UA Mucus Few /LPF None Seen /LPF 12/14/2017 [facility] URINE AND STOOL UA Leuk Est Moderate *ABN* (12/14/17 1:50 PM) Negative 12/14/2017 [facility] URINE AND STOOL UA Urobilinogen 0.2 EU/dL 0.1 - 1.0 12/14/2017 [facility] URINE AND STOOL UA Nitrite Negative (12/14/17 1:50 PM) Negative 12/14/2017 [facility] URINE AND STOOL Micro? Performed (12/14/17 1:50 PM) 12/14/2017 [facility] URINE AND STOOL UA Sq Epi Occasional /LPF Few /LPF 12/14/2017 [facility] URINE AND STOOL UA WBC >100 /HPF 0 - 5 12/14/2017 [facility] URINE AND STOOL UA RBC >100 /HPF 0 - 2 12/14/2017 [facility] URINE AND STOOL UA Bacteria Few /HPF None Seen /HPF 12/14/2017 [facility] URINE AND STOOL UA Spec Grav 1.010 <=1.030 12/14/2017 [facility] URINE AND STOOL UA Color Red *ABN* (12/14/17 1:50 PM) Yellow 12/14/2017 [facility] URINE AND STOOL UA Turbidity Cloudy *ABN* (12/14/17 1:50 PM) Clear 12/14/2017 [facility] URINE AND STOOL UA Protein 100 mg/dL Negative mg/dL 12/14/2017 [facility] URINE AND STOOL UA pH 6.5 5.0 - 8.0 12/14/2017 [facility] URINE AND STOOL UA Ketones Negative *NA* (12/14/17 1:50 PM) Negative 12/14/2017 [facility] URINE AND STOOL UA Glucose Negative (12/14/17 1:50 PM) Negative 12/14/2017 [facility] URINE AND STOOL UA Bili Negative *NA* (12/14/17 1:50 PM) Negative 12/14/2017 [facility] URINE AND STOOL UA Blood Large *ABN* (12/14/17 1:50 PM) Negative 12/14/2017 [facility] CHEM PANEL Lactic Acid Lvl 1.0 mMol/L 0.5 - 2.2 12/14/2017 [facility] CHEM PANEL Lipase Lvl 61 unit/L 73 - 393 12/14/2017 [facility] CHEM PANEL A/G Ratio 0.8 0.7 - 1.6 12/14/2017 [facility] CHEM PANEL AGAP 11.6 meq/L 10.0 - 20.0 12/14/2017 [facility] CHEM PANEL B/C Ratio 21 6 - 25 12/14/2017 [facility] CHEM PANEL Globulin 4.5 g/dL 2.7 - 4.2 12/14/2017 [facility] CHEM PANEL eGFR 81 mL/min/1.73m2 12/14/2017 Result Comment: The eGFR is calculated using the [...] from the National Kidney Disease Education Program (NKDEP) which additionally recommends that when the eGFR is used in patients with extremes of body mass index for purposes of drug dosing, the eGFR should be multiplied by the estimated BMI. [facility] CHEM PANEL Alk Phos 109 unit/L 39 - 136 12/14/2017 [facility] CHEM PANEL Bili Total 0.8 mg/dL 0.2 - 1.3 12/14/2017 [facility] CHEM PANEL Chloride Lvl 105 meq/L 95 - 109 12/14/2017 [facility] CHEM PANEL AST 18 unit/L 0 - 37 12/14/2017 [facility] CHEM PANEL ALT 19 unit/L 0 - 65 12/14/2017 [facility] CHEM PANEL Albumin Lvl 3.6 g/dL 3.5 - 5.0 12/14/2017 [facility] CHEM PANEL Total Protein 8.1 g/dL 6.4 - 8.4 12/14/2017 [facility] CHEM PANEL Calcium Lvl 8.9 mg/dL 8.5 - 10.5 12/14/2017 [facility] CHEM PANEL CO2 28 meq/L 24 - 32 12/14/2017 [facility] CHEM PANEL Potassium Lvl 3.6 meq/L 3.5 - 5.1 12/14/2017 [facility] CHEM PANEL BUN 18 mg/dL 7 - 22 12/14/2017 [facility] CHEM PANEL Sodium Lvl 141 meq/L 135 - 145 12/14/2017 [facility] CHEM PANEL Creatinine Lvl 0.86 mg/dL 0.50 - 1.40 12/14/2017 [facility] CHEM PANEL Glucose Lvl 132 mg/dL 70 - 99 12/14/2017 [facility] HEMATOLOGY Basophils 0.2 % 0.0 - 1.0 12/14/2017 [facility] HEMATOLOGY Eosinophils 0.5 % 0.0 - 4.0 12/14/2017 [facility] HEMATOLOGY Lymphocytes 14.4 % 20.0 - 40.0 12/14/2017 [facility] Monocytes 3.2 % 2.0 - 12.0 12/14/2017 [facility] Lymphocytes # 1.4 K/CMM 1.0 - 5.5 12/14/2017 [facility] HEMATOLOGY Segs-Bands # 7.9 K/CMM 1.5 - 8.1 12/14/2017 [facility] Monocytes # 0.3 K/CMM 0.0 - 0.8 12/14/2017 [facility] Segs 81.7 % 45.0 - 75.0 12/14/2017 [facility] MPV 8.1 fL 7.4 - 10.4 12/14/2017 [facility] Hct 37.0 % 42.0 - 54.0 12/14/2017 [facility] MCH 32.2 pg 27.0 - 31.0 12/14/2017 [facility] MCV 95.4 fL 80.0 - 94.0 12/14/2017 [facility] Platelet 173 K/CMM 133 - 450 12/14/2017 [facility] RDW 14.1 % 11.5 - 14.5 12/14/2017 [facility] MCHC 33.7 g/dL 32.0 - 36.0 12/14/2017 [facility] RBC 3.87 M/CMM 4.70 - 6.10 12/14/2017 [facility] WBC 9.6 K/CMM 3.7 - 10.4 12/14/2017 [facility] Hgb 12.4 g/dL 14.0 - 18.0 12/14/2017 [facility] URINE AND STOOL UA Spec Grav 1.015 <=1.030 12/14/2017 [facility] URINE AND STOOL UA Turbidity Cloudy *ABN* (12/14/17 7:37 AM) Clear 12/14/2017 [facility] URINE AND STOOL UA Color Yellow *NA* (12/14/17 7:37 AM) Yellow 12/14/2017 [facility] URINE AND STOOL UA Leuk Est Large *ABN* (12/14/17 7:37 AM) Negative 12/14/2017 [facility] URINE AND STOOL UA Nitrite Negative (12/14/17 7:37 AM) Negative 12/14/2017 [facility] URINE AND STOOL UA Urobilinogen 0.2 EU/dL 0.1 - 1.0 12/14/2017 [facility] URINE AND STOOL UA Bili Negative *NA* (12/14/17 7:37 AM) Negative 12/14/2017 [facility] URINE AND STOOL UA Ketones Negative *NA* (12/14/17 7:37 AM) Negative 12/14/2017 [facility] URINE AND STOOL UA pH 7.5 5.0 - 8.0 12/14/2017 [facility] URINE AND STOOL UA Blood Small *ABN* (12/14/17 7:37 AM) Negative 12/14/2017 [facility] URINE AND STOOL UA Glucose Negative (12/14/17 7:37 AM) Negative 12/14/2017 [facility] URINE AND STOOL UA Protein Negative (12/14/17 7:37 AM) Negative 12/14/2017 [facility] URINE AND STOOL UA Bacteria Few /HPF None Seen /HPF 12/14/2017 [facility] URINE AND STOOL UA RBC 0-2 /HPF 0 - 2 12/14/2017 [facility] URINE AND STOOL UA WBC Packed *ABN* (12/14/17 7:37 AM) None Seen 12/14/2017 [facility] URINE AND STOOL Micro? Performed (12/14/17 7:37 AM) 12/14/2017 [facility] URINE AND STOOL UA Sq Epi Rare /LPF Few /LPF 12/14/2017 [facility] ED Abdomen/Pelvis IV contrast only CT ED Abdomen/Pelvis IV contrast only CT CT ABDOMEN AND PELVIS WITH CONTRAST HISTORY: Abdominal pain, acute - right lower quadrant abdominal pain TECHNIQUE: Helical scan of the abdomen and pelvis was performed from the domes of the diaphragm through the symphysis. Reformatted sagittal and coronal images are included. IV CONTRAST: 100 cc Omnipaque [id number]. ORAL CONTRAST: None. DLP: 751 mGy-cm COMPARISON: CT 01/18/2013. FINDINGS: LOWER CHEST: Mild subpleural interstitial infiltrate is demonstrated at each costophrenic sulcus. No pleural fluid. Moderate hiatal hernia. Focal calcifications noted near each hilum, indicative of old granulomatous disease. LIVER: Normal. GALLBLADDER: Normal appearance of the gallbladder (non calcified stones may not be visible on CT). SPLEEN: Punctate calcifications. Otherwise normal. PANCREAS: Normal. ADRENALS: Normal. KIDNEYS: Moderate bilateral hydroureteronephrosis with bilateral ureteral tortuosity. Nonobstructing calculus within the distal right ureter measuring up to approximately 8 mm. Exophytic cyst along the lateral contour of the left kidney with maximum diameter 5.4 cm. BOWEL, MESENTERY: No evidence of acute bowel pathology. Evidence of diverticulosis noted with primary involvement of the sigmoid. No mesenteric inflammation, adenopathy or mass. APPENDIX: Normal appearance of the appendix. PERITONEUM: No significant free fluid or extraluminal gas. RETROPERITONEUM: Mild atheromatous calcification within the aorta and iliac arteries. No aneurysm. Mildly enlarged left common iliac lymph node with a short axis measurement of 1.3 cm. ABDOMINAL WALL: No significant abnormality. PELVIS: There is nonspecific enlargement of the prostate gland with changes of previous transurethral resection of the prostate. Areas of dense prostatic calcification noted. Bladder wall trabeculation is noted. Moderately large right inguinal hernia contains a short segment of bowel and small volume fluid. No surrounding inflammation is apparent. MUSCULOSKELETAL: No acute skeletal process or focal bone lesion. Thoracolumbar scoliosis noted with changes of severe multilevel degenerative disc disease. IMPRESSION: 1. Moderate hiatal hernia. 2. Old granulomatous disease. 3. Mild basilar interstitial infiltrate. 4. Moderate bilateral hydroureteronephrosis above a trabeculated bladder. 5. Enlarged prostate gland with changes of previous transurethral resection of the prostate. 6. Nonobstructing distal right ureterolithiasis, 8 mm. 7. Benign left renal cyst. 8. Mildly enlarged left common iliac lymph node with short axis measurement of 1.3 cm. 9. Scoliosis with changes of advanced spondylosis. SL: [id number] 12/14/2017 - - Read by: Artie Carias MD Dictated Date/time: 12/14/17 09:19 Electronically Signed by: Artie Carias MD 12/14/17 09:31 FINAL REPORT [facility] Spine cervical wo contrast CT Spine cervical wo contrast CT Clinical Indication: - fall; Comparison: None Technique: Multi-detector CT imaging of the cervical spine is performed. Coronal and sagittal reconstructions were obtained. CT Radiation Dose DLP 318.28 mGy-cm FINDINGS: ALIGNMENT AND GENERAL ASSESSMENT: There is kyphosis of the spine at C5-C6. Grade 1 anterolisthesis of C5 on C6 is present. There are no fractures or subluxations. There is osteophyte formation at the tip of the dens with surrounding pannus. The atlanto-dental alignment appears unremarkable. The posterior elements and spinous processes are unremarkable. The facet joint, spinolaminar and spinous process alignment are normal. DISK SPACES AND SOFT TISSUES: The prevertebral soft tissues are normal. Degenerative disc disease is present at all levels throughout the cervical spine, worst at C5-C6 and C6-C7. Grade 1 anterolisthesis of C5 on C6 is present. Severe facet arthropathy is present at C4-C5 on the right with severe neuroforaminal narrowing. Moderate facet arthropathy is present at C5-C6 on the right with moderate neuroforaminal narrowing. Severe facet arthropathy is present at C3-C4 on the left with severe neuroforaminal narrowing. MRI is the gold standard to assess for disk disease. VISUALIZED LUNG APICES: Unremarkable. CT myelogram or MRI of the cervical spine may be performed, if there is further concern. IMPRESSION: 1. No fractures or subluxations of the cervical spine. 2. Multilevel degenerative disc disease in the cervical spine, worst at C5-C6 and C6-C7 with kyphosis at C5-C6 and grade 1 anterolisthesis at this level. 3. Severe neuroforaminal narrowing at C4-C5 on the right and C3-C4 on the left. SL: CARMEN 10/25/2017 - - Read by: Sandra Chauhan MD Dictated Date/time: 10/25/17 19:13 Electronically Signed by: Sandra Chauhan MD 10/25/17 19:20 FINAL REPORT [facility] Brain wo contrast CT Brain wo contrast CT Study: Brain wo contrast CT 10/25/2017 6:25 PM [employer] Ordering Physician: Sonia Clarke Clinical Indication: 82-year-old status post fall with head trauma. Pain. Comparison: None TECHNIQUE: CT images are obtained from the foramen magnum to the vertex on a multidetector CT. Sagittal and coronal reformats are acquired. CT radiation dose DLP: 916 mGy-cm. FINDINGS: Ventricles, sulci and basal cisterns are within normal limits for age. The mckenzie- white junction is intact. No encephalomalacic changes are seen. The distal vertebral and basilar arteries are tortuous and mildly ectatic. Heavy bilateral cavernous internal carotid artery calcifications are seen. There is no evidence for intracranial mass, mass effect or extra-axial fluid collection. There is no evidence for intracranial hemorrhage. The skull is intact. Visualized paranasal sinuses are clear. Inferior mastoid sclerosis is present, with inferior mastoid air cell opacification bilaterally. Orbital structures are grossly unremarkable. IMPRESSION: Mild inferior mastoid air cell opacification is present bilaterally. No intracranial pathology is seen. No skull fracture identified. There is no intracranial hemorrhage or contusion. SL: [id number] 10/25/2017 - - Read by: Jessy Huggins MD Dictated Date/time: 10/25/17 19:00 Electronically Signed by: Jessy Huggins MD 10/25/17 19:12 FINAL REPORT [facility] Vital Signs Vital Sign Value Date Comments Source Respitory Rate 18 12/17/2017 [facility] Temperature Oral (F) 98.4 F 12/17/2017 [facility] Heart Rate 98 12/17/2017 [facility] Systolic (mm Hg) 129 12/17/2017 [facility] Diastolic (mm Hg) 63 12/17/2017 [facility] Respitory Rate 18 12/16/2017 [facility] Systolic (mm Hg) 115 12/16/2017 [facility] Diastolic (mm Hg) 70 12/16/2017 [facility] Heart Rate 78 12/16/2017 [facility] Temperature Oral (F) 97.9 F 12/16/2017 [facility] Temperature Oral (F) 98.7 F 12/16/2017 [facility] Systolic (mm Hg) 130 12/16/2017 [facility] Diastolic (mm Hg) 68 12/16/2017 [facility] Heart Rate 74 12/16/2017 [facility] Respitory Rate 17 12/16/2017 [facility] BMI Calculated 32.69 12/14/2017 [facility] Weight 94.682 12/14/2017 [facility] Height 170.18 cm 12/14/2017 [facility] Weight 96.818 12/14/2017 [facility] Height 170.18 cm 12/14/2017 [facility] BMI Calculated 33.43 12/14/2017 [facility] Systolic (mm Hg) 147 10/26/2017 [facility] Diastolic (mm Hg) 75 10/26/2017 [facility] Respitory Rate 16 10/26/2017 [facility] Heart Rate 68 10/26/2017 [facility] Respitory Rate 16 10/26/2017 [facility] Heart Rate 66 10/26/2017 [facility] Systolic (mm Hg) 160 10/26/2017 [facility] Diastolic (mm Hg) 82 10/26/2017 [facility] Height 175.26 cm 10/25/2017 [facility] BMI Calculated 28.86 10/25/2017 [facility] Weight 88.636 10/25/2017 [facility] Systolic (mm Hg) 157 10/25/2017 [facility] Diastolic (mm Hg) 76 10/25/2017 [facility] Heart Rate 65 10/25/2017 [facility] Respitory Rate 16 10/25/2017 [facility] Encounters Location Location Details Encounter Type Encounter Number Reason For Visit Attending Provider ADM Date DC Date Status Source [facility] [id number] Drew Eng 10/25/2017 10/26/2017 [facility] Inpatient [id number] Radha Hernandez 12/14/2017 12/17/2017 [facility] [place] [facility] [id number] Jeannine Reza 05/15/2018 05/16/2018 [facility] [place] Procedures Procedure Code Date Perfomer Comments Source Cholecystectomy [id number] [facility] [place] Knee replacement [id number] [facility] [place] Laparoscopic repair of hernia [id number] [facility] [place] Cholecystectomy [id number] [facility] Knee replacement [id number] [facility] Laparoscopic repair of hernia [id number] [facility]
[2018-09-10] MEDS ORDERED: CEFAZOLIN SOD 2 GM/D5W 50ML 50 ML IV ONE (10:18)
[2018-09-10] MEDS ORDERED: GELATIN SPONGE 12-7MM ONE (10:31)
[2018-09-10] MEDS: SODIUM CHLORIDE 0.9% 1000ML 1,000 ML IV SCH ×2 (12:52→19:11)
[2018-09-10] MEDS ORDERED: KETOROLAC TROMETHAMINE 30 MG/ML VIAL IV PRN (13:00)
[2018-09-10] MEDS ORDERED: ONDANSETRON HCL INJ 2 MG/ML VIAL IV PRN (13:00)
[2018-09-10] MEDS ORDERED: HYDROCODONE/APAP 5MG-325MG TAB PO PRN (13:00)
[2018-09-10] MEDS ORDERED: DOCUSATE SODIUM 100 MG CAP PO PRN (13:00)
[2018-09-10] MEDS ORDERED: HYDROCODONE/APAP 7.5MG-325MG 1 EA TAB PO PRN (13:00)
[2018-09-10] MEDS ORDERED: DIPHENHYDRAMINE HCL INJ 50 MG/ML VIAL IM/IV PRN (13:00)
[2018-09-10] MEDS ORDERED: PROMETHAZINE HCL (IM) 25 MG/ML VIAL IM PRN (13:00)
[2018-09-10] MEDS ORDERED: ACETAMINOPHEN 650 MG SUPP PR PRN (13:00)
[2018-09-10] MEDS ORDERED: HYDROMORPHONE 2MG/ML 2 MG/ML ML ONE (13:38)
[2018-09-10] MEDS ORDERED: CEFAZOLIN SOD 1 GM/D5W 50ML 50 ML IV SCH (14:00)
[2018-09-10 14:55] VITALS: BP 142/76
[2018-09-10 15:26] VITALS: BP 142/76
[2018-09-10 15:44] VITALS: BP 142/76
[2018-09-10] MEDS ORDERED: CELECOXIB 100 MG CAP PO SCH (17:00)
[2018-09-10] MEDS: ACETAMINOPHEN 1000 MG/100 ML IV SCH (18:03)
[2018-09-10] MEDS: CELECOXIB 200 MG CAP PO SCH (18:03)
[2018-09-10] MEDS: ASPIRIN 325 MG TAB PO SCH (18:03)
[2018-09-10] MEDS: CEFAZOLIN SOD 1 GM VIAL IV SCH (18:03)
[2018-09-10] MEDS ORDERED: FENTANYL CITRATE/PF 100MCG/2 ML INJ ONE (18:46)
[2018-09-10] MEDS ORDERED: EPHEDRINE SULFATE INJ 50 MG/10 ML SYR ONE (18:50)
[2018-09-10] MEDS ORDERED: PHENYLEPHRINE HCL 1% 10 MG/ML VIAL ONE (18:50)
[2018-09-10] MEDS ORDERED: DEXAMETHASONE SOD PHOS INJ 4 MG/ML VIAL ONE (18:50)
[2018-09-10] MEDS ORDERED: PROPOFOL IV EMULSION 10 MG/ML 20 ML VIAL ONE (18:50)
[2018-09-10] MEDS ORDERED: SEVOFLURANE INHAL SOLN 250 ML PEN BTL ONE (18:50)
[2018-09-10] MEDS ORDERED: NEOSTIGMINE 5 MG/5ML SYR ONE (18:50)
[2018-09-10] MEDS ORDERED: ROCURONIUM BROMIDE 10 MG/ML 5ML VIAL ONE (18:50)
[2018-09-10] MEDS ORDERED: GLYCOPYRROLATE INJ 1MG/ 5 ML SYR ONE (18:50)
[2018-09-10] MEDS ORDERED: LIDOCAINE HCL 2% LOCAL INJ 5 ML SDV VIAL INJ ONE (18:50)
[2018-09-10] MEDS ORDERED: ONDANSETRON HCL INJ 2 MG/ML VIAL ONE (18:50)
[2018-09-10] MEDS ORDERED: ACETAMINOPHEN 1000 MG/100 ML IV ONE (18:50)
[2018-09-10 20:00] VITALS: BP 133/67
[2018-09-10] MEDS ORDERED: ZOLPIDEM TARTRATE 5 MG TAB PO PRN (21:00)
[2018-09-11] VITALS: BP 118/63
[2018-09-11] MEDS: ACETAMINOPHEN 1000 MG/100 ML IV SCH ×3 (00:48→12:00)
[2018-09-11] MEDS: CEFAZOLIN SOD 1 GM VIAL IV SCH ×2 (02:05→08:50)
[2018-09-11 04:00] VITALS: BP 135/64
[2018-09-11 05:29] LABS: HEMATOCRIT 28.9 % (38.2-49.6); HEMOGLOBIN 9.7 g/dL (14.0-18.0)
[2018-09-11 08:22] VITALS: BP 119/61
[2018-09-11] MEDS: CELECOXIB 200 MG CAP PO SCH (08:50)
[2018-09-11] MEDS: ASPIRIN 325 MG TAB PO SCH (08:50)
[2018-09-11 08:54] VITALS: BP 119/61
[2018-09-11] MEDS: SODIUM CHLORIDE 0.9% 1000ML 1,000 ML IV SCH (10:45)
[2018-09-11 12:37] VITALS: BP 130/84
[2018-09-11] MEDS ORDERED: ACETAMINOPHEN 1000 MG/100 ML IV PRN (13:00)
--- NOTE | 2018-09-11 14:37 | Operative Report ---
DATE OF PROCEDURE: September 10, 2018 ___ASSISTANT: Yonatan Henry PA-C ___The patient was brought to the operating room for induction of anesthesia. Throughout this case, my PA's assistance was necessary for retraction of soft tissue and positioning of the extremity. This allows for efficient and technically successful execution of the operation and is considered medically necessary. PREOPERATIVE DIAGNOSIS: Right humeral shaft fracture SECONDARY DIAGNOSIS: End-stage osteoarthritis right shoulder. PROCEDURE: Open reduction and internal fixation right humerus. 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 The fracture fragments were markedly displaced. He also has severe arthritic changes in his right shoulder. He either uses a cane or a walker to ambulate. We have discussed the findings and options. We plan on an open reduction with internal fixation. The risks and benefits have been explained. Both he and his family state they understand and wish to proceed. DESCRIPTION OF PROCEDURE: The patient was brought to the operating room and placed under general anesthetic. His right upper extremity was prepped and draped in a sterile manner. He was positioned in the floppy lateral position. A preoperative time out was performed. The extremity was exsanguinated, and a proximal sterile tourniquet was placed on the upper arm. A posterior approach splitting the triceps muscle and tendon was performed. Care was taken to avoid injury to the radial neurovascular bundle. The fracture site was carefully exposed. Reduction clamps were used to provided a near anatomic reduction. It was noted that the patient had severe limitations in motion in his right shoulder. Temporary fixation was obtained with K-wires. A [employer] locking plate was then placed onto the radial shaft. This was fixed with a combination of compression and locking screws. Once again, care was taken to avoid injury to the radial neurovascular bundle. Intraoperative x-rays were performed. We could obtain limited visualization due to the inability to manipulate the arm from the severely arthritic shoulder. Gross inspection appeared to show an anatomic reduction with good positioning of the hardware. The wound was thoroughly irrigated. The triceps fascia was closed with 0 Vicryl. The skin was closed with subcuticular Vicryl and claribel. A sterile bandage and a posterior splint were applied. The patient was returned to the supine position and extubated. He was transported to the recovery room in stable condition. Estimated blood loss was about 50 mL. All needle and sponge counts were correct. Job#: [id number] EV
--- NOTE | 2018-10-29 14:45 | Discharge Summary ---
CHIEF COMPLAINT: Right arm pain, following an injury. His x-rays show a completely displaced oblique fracture of the lower humeral shaft. He also has severe OA of the right shoulder. The findings were discussed at length with the patient. He has a surgical fracture of his lower right humerus with severe arthritic changes in his right shoulder. The risks and benefits were explained. The patient states he understands and would now like to proceed with open reduction and internal fixation of the right humerus. HOSPITAL COURSE: The patient underwent open reduction and internal fixation of the right humeral shaft without complications. He was then transferred to the recovery room in the floor in stable condition. He remained stable through his postoperative stay. He was ultimately discharged on postop day 1. PRINCIPAL DIAGNOSIS: Right humeral shaft fracture. PRINCIPAL PROCEDURE: ORIF, right humeral shaft. DISCHARGE INSTRUCTIONS: The patient was discharged on postop day 1 and [facility]. He was instructed to put no weight on the right arm or do any lifting. He was to remain in the splint. He was to resume his home medications as instructed. He was to follow up in our office in 10 days. DICTATED BY: Yonatan Henry PA-C JEANMARIE ANN MD Job#: [id number] TYREE
--- NOTE | 2018-11-17 12:05 | Consultation ---
DATE OF CONSULTATION: September 11, 2018 REASON FOR CONSULTATION: Postop management. HISTORY OF PRESENT ILLNESS: Patient is a gentleman who is status post right humeral shaft fracture repair, who is doing well postoperatively, but does complain of some right arm pain. REVIEW OF SYSTEMS: He denies chest pain, nausea, vomiting, shortness of breath, headache, dizziness. PAST MEDICAL HISTORY: Significant for diabetes, hypertension, hyperlipidemia. MEDICATIONS: See MAR. ALLERGIES: SULFA. SOCIAL HISTORY: Nonsmoker, nondrinker. FAMILY HISTORY: Noncontributory. PHYSICAL EXAMINATION VITAL SIGNS: Temperature 96.6, pulse 78, blood pressure 118/63, sats 93%. GENERAL: No apparent distress. NECK: Supple. LUNGS: Clear to auscultation bilaterally. CARDIOVASCULAR: Regular rate and rhythm. ABDOMEN: Good bowel sounds. Soft and nontender. EXTREMITIES: No clubbing or cyanosis. His right arm is in a sling. NEUROLOGIC: Nonfocal. ASSESSMENT AND PLAN 1. Right humeral fracture. Continue with postoperative care. 2. Diabetes. Continue with current care and monitoring his sugars. 3. Hypertension. Continue with monitoring his blood pressure. 4. Hyperlipidemia. We will restart his cholesterol medicine at discharge. Please see hospital chart for full details. Job#: [id number]
== END 2018-09-11 15:56 | disposition home or self-care (01) ==
LOC: OR 10:00 → PACU V 12:54 → IMCU 14:53
PROVIDERS: ADMIT Specialist; ATTEND Specialist
DX: S42.33 Oblique fracture of shaft of humerus (principal); M19.011 Primary osteoarthritis, right shoulder; Z96.652 Presence of left artificial knee joint; E11.9 Type 2 diabetes mellitus without complications; I10 Essential (primary) hypertension; E78.00 Pure hypercholesterolemia, unspecified; M17.12 Unilateral primary osteoarthritis, left knee; Z87.442 Personal history of urinary calculi; Z83.3 Family history of diabetes mellitus; Z79.84 Long term (current) use of oral hypoglycemic drugs; Z88.2 Allergy status to sulfonamides; Z88.8 Allergy status to other drugs, medicaments and biological substances; N40.0 Benign prostatic hyperplasia without lower urinary tract symptoms
CPT/HCPCS: 24515; 36415 ×2; 76001; 82948 ×2; 85014; 85018; 97116 ×2; 97162; 97530; C1713 ×7; G0378 ×2; G8978; G8979; J0690 ×2; J1100; J1170; J1885; J2001; J2370; J2405; J3490; J7030 ×2